=== PATIENT | female | born 1960 | race Caucasian/White ===

== ENCOUNTER 2020-03-31 06:03 | Outpatient (REF) | payer BC, SELFPAY ==
[2020-03-31 11:21] LABS: MANUAL DIFF FLAG NO
[2020-03-31 11:28] LABS: Basophils Percent Auto 0.6 % (0-2); Eosinophils Absolute Auto 0.2 X10*3/uL (0.0-0.4); Eosinophils Percent Auto 3.4 % (0-4); Hematocrit 38.8 % (37-47); Hemoglobin 12.9 g/dl (12.0-16.0); Imm Gran Abs Auto 0.02 X10*3/uL (0.00-0.03); Imm Gran Pct Auto 0.3 % (0.0-0.4); Lymphocytes Percent Auto 28.3 % (20-40); Mean Corpuscular HGB Conc 33.2 g/dl (31.0-35.0); Mean Corpuscular Hemoglobin 29.8 pg (27.0-33.0); Mean Corpuscular Volume 89.6 fL (80-98); Mean Platelet Volume 10.7 fL (9.4-12.3); Monocytes Absolute Auto 0.7 X10*3/uL (0.1-1.2); Monocytes Percent Auto 9.7 % (2-11); Neutrophils Absolute Auto 4.1 X10*3/uL (2.0-8.3); Neutrophils Percent Auto 57.7 % (45-73); Platelet Count 306 X10*3/uL (160-400); Red Blood Count 4.33 X10*6/uL (4.20-5.50); Red Cell Distribution Width 13.2 % (11.0-16.0); White Blood Count 7.1 X10*3/uL (4.8-10.8)
[2020-03-31 11:30] LABS: Estimated Average Glucose 100 mg/dL; Hemoglobin A1c % 5.1 %
[2020-03-31 11:55] LABS: Alanine Aminotransferase 19 U/L (0-31); Albumin Level 3.8 g/dL (3.5-5.0); Alkaline Phosphatase 68 U/L (39-117); Anion Gap 11 (12-20); Aspartate Amino Transferase 16 U/L (5-31); Bilirubin Total 0.5 mg/dL (0.0-1.0); Blood Urea Nitrogen 16 mg/dL (9-16); Calcium 8.4 mg/dL (8.4-10.2); Carbon Dioxide 28 mmol/L (22-29); Chloride 106 mmol/L (96-108); Cholesterol 220 mg/dL; Estimated Glomerular Filt Rate 60; Glucose Fasting 85 mg/dL (60-99); HDL Cholesterol 55 mg/dL; LDL Cholesterol Calculated 119 mg/dl; Potassium 3.7 mmol/l (3.3-5.1); Sodium 141 mmol/L (135-145); Total Protein 6.1 g/dL (6.5-8.0); Triglycerides 232 mg/dL
[2020-03-31 12:20] LABS: Thyroid Stimulating Hormone 1.14 mIU/mL (0.32-4.0); Vitamin D 25-OH Total 43.5 ng/mL (>30)
== END 2020-03-31 06:04 | disposition home or self-care (01) ==
LOC: HO.HMGCLDS 06:03
PROVIDERS: PCP Internal Medicine; Visit Provider Internal Medicine
DX: Z00.00 Encounter for general adult medical examination without abnormal findings (principal); E78.00 Pure hypercholesterolemia, unspecified; Z13.29 Encounter for screening for other suspected endocrine disorder; Z13.1 Encounter for screening for diabetes mellitus; Z78.9 Other specified health status
CPT/HCPCS: 36415; 80053; 80061; 82306; 83036; 84443; 85025

== ENCOUNTER 2020-12-11 07:01 | Day surgery (SDC) | payer BC, SELFPAY ==
[2020-12-06 10:44] VITALS: BMI 25.9
--- NOTE | 2020-12-07 11:59 | P.CONAN_ITS ---
Documented by User: Sanjana Dominguez 12/07/20 11:59 HPI - Anesthesia Eval Consult details Narrative: 60yo F for Colonoscopy PMFSH Past Medical History Medical History (Updated 12/06/20 @ 10:43 by Eli Ring) COVID-19 vaccine series completed PONV (postoperative nausea and vomiting) Seasonal allergies Surgical History Surgical History (Updated 12/06/20 @ 10:34 by Eli Ring) History of tonsillectomy Hx of cervical discectomy Hx of cholecystectomy Hx of colonoscopy Hx of hysterectomy S/P anal fissurectomy [place] teeth extracted Social History Social History Are you a primary health care law specialist to a significant other at home: No Do you presently have visiting nurse or other home services: No Patient Tobacco Use Status: Never used Tobacco Second Hand Smoke Exposure: No Use of substances other than those prescribed or required for medical reasons: No Have you been hit, kicked, punched, or otherwise hurt by someone within the past year? If so, by whom?: No Are you DNR?: No Advance Directives: No Advance Directives Information Provided: No Advance Directives on File: No Recently lost weight without trying: No Eating poorly because of decreased appetite: No Nutrition Risks: No Nutritional Risk Patient : No Meds Allergies Allergy/AdvReac Type Severity Reaction Status Date / Time No Known Allergies Allergy Verified 12/11/20 08:03 Home Medications Medication Instructions Recorded Confirmed Last Taken Type Lactobacillus acidophilus 1,000 mmu cells PO DAILY 12/06/20 12/06/20 Unknown History [Acidophilus] acetaminophen [Tylenol] 650 mg PO Q6H PRN 12/06/20 12/06/20 Unknown History ascorbic acid (vitamin C) [Vitamin 500 mg PO DAILY 12/06/20 12/06/20 Unknown History C] estradiol 1 tab PO DAILY 12/06/20 12/06/20 Unknown History estradiol VAGINAL 12/06/20 Unknown History pxxaydvm-qpg-gnxu-FA-lutein 1 tab PO DAILY 12/06/20 12/06/20 Unknown History [Centrum Silver Women] Exam Exam Date and Time: December 07, 2020 1159 Height,Weight and Vital Signs: Height 5 ft 2 in Weight 64.41 kg Assessment and Plan Assessment Anesthesia Assessment: Chart Reviewed Documented by User: Carrie Quan 12/11/20 08:40 [facility] Past Medical History Medical History (Updated 12/06/20 @ 10:43 by Eli Ring) COVID-19 vaccine series completed PONV (postoperative nausea and vomiting) Seasonal allergies Surgical History Surgical History (Updated 12/06/20 @ 10:34 by Eli Ring) History of tonsillectomy Hx of cervical discectomy Hx of cholecystectomy Hx of colonoscopy Hx of hysterectomy S/P anal fissurectomy [place] teeth extracted Social History Social History Are you a primary health care law specialist to a significant other at home: No Do you presently have visiting nurse or other home services: No Patient Tobacco Use Status: Never used Tobacco Second Hand Smoke Exposure: No Use of substances other than those prescribed or required for medical reasons: No Have you been hit, kicked, punched, or otherwise hurt by someone within the past year? If so, by whom?: No Are you DNR?: No Advance Directives: No Advance Directives Information Provided: No Advance Directives on File: No Recently lost weight without trying: No Eating poorly because of decreased appetite: No Nutrition Risks: No Nutritional Risk Patient : No Meds Allergies Allergy/AdvReac Type Severity Reaction Status Date / Time No Known Allergies Allergy Verified 12/11/20 08:03 Home Medications Medication Instructions Recorded Confirmed Last Taken Type Lactobacillus acidophilus 1,000 mmu cells PO DAILY 12/06/20 12/06/20 Unknown History [Acidophilus] acetaminophen [Tylenol] 650 mg PO Q6H PRN 12/06/20 12/06/20 Unknown History ascorbic acid (vitamin C) [Vitamin 500 mg PO DAILY 12/06/20 12/06/20 Unknown History C] estradiol 1 tab PO DAILY 12/06/20 12/06/20 Unknown History estradiol VAGINAL 12/06/20 Unknown History hvazgmir-kvv-rvig-FA-lutein 1 tab PO DAILY 12/06/20 12/06/20 Unknown History [Centrum Silver Women] Exam Airway Mallampati Class: II TM Dist: >3cm Neck ROM: Full Heart: rrr Lungs: cta Assessment and Plan Assessment Anesthesia Assessment: Anesthesia Plan Discussed and Chart Reviewed Final Anesthetic Review NPO: Yes ASA Class: II Final Preanesthetic Review: No Changes in Pt Med Stat and Consent Obtaine d/Reviewed Patient Risk: Intermediate Procedure Risk: Intermediate Anesthetic Plan Anesthetic Plan: MAC: Disposition: Standard PACU
[2020-12-11 08:05] VITALS: BP 152/86; PULSE 90; RESP 16; TEMP 36.3; O2SAT 99
[2020-12-11] MEDS: Lactated Ringers 1,000 ML 100 ML IVCONT (08:09)
[2020-12-11 09:28] VITALS: BP 101/60; PULSE 81; RESP 16; TEMP 36.3; O2SAT 96
--- NOTE | 2020-12-11 09:31 | P.BOP_ITS ---
Brief Operative Note Date of Service: 12/11/20 Pre-op diagnosis: Screening Post-op diagnosis: other (Diverticulosis, Internal hemorrhoids) Procedure: Colonoscopy to the cecum and TI Surgeon: Escobar Zarate Anesthesia: MAC Was an Certified Alcohol Drug Counselor used for this Procedure?: No Estimated blood loss (mL): 0 Pathology: none sent Condition: stable Disposition: PACU
[2020-12-11 09:43] VITALS: BP 103/59; PULSE 65; RESP 18; O2SAT 97
[2020-12-11 09:58] VITALS: BP 109/53; PULSE 68; RESP 18; O2SAT 97
[2020-12-11 10:13] VITALS: BP 117/62; PULSE 64; RESP 18; O2SAT 98
--- NOTE | 2020-12-15 10:56 | OP_ITS ---
SURGEON: Escobar Zarate MD INDICATIONS: The patient presents for evaluation of colorectal cancer screening. Full consent has been obtained from her for this, including risks of bleeding and perforation. PREOPERATIVE DIAGNOSIS: Colorectal cancer screening. POSTOPERATIVE DIAGNOSIS: PROCEDURE PERFORMED: Colonoscopy to cecum and terminal ileum. ESTIMATED BLOOD LOSS: COMPLICATIONS: ANESTHESIA: Monitored anesthesia care. ASSISTANTS: SPECIMENS: POSTOPERATIVE DIAGNOSES: Colorectal cancer screening, diverticulosis and internal hemorrhoids. DESCRIPTION OF PROCEDURE: The patient was placed in the left lateral decubitus position. The digital rectal exam revealed no abnormalities. The Olympus video pediatric colonoscope was entered into the rectum and advanced easily to the cecum. Once in the cecum, I did identify normal-appearing cecal pouch with appendiceal orifice and a normal-appearing ileocecal valve. The terminal ileum was cannulated and appeared normal. The scope was withdrawn back in the colon. The entire cecum and ileocecal valve appeared normal. The scope was slowly withdrawn assessing all mucosal surfaces carefully. Preparation was excellent. I did not visualize any sign of polyps, colitis, nor angiodysplasia. There was a mild to moderate amount of sigmoid diverticulosis. In the rectum, scope was retroflexed visualizing small internal hemorrhoids, but no other pathology. The rectal mucosa appeared normal. The scope was straightened out and withdrawn from the patient. She tolerated the procedure well and was returned to the recovery area in stable condition. IMPRESSION: 1. Diverticulosis. 2. Internal hemorrhoids. PLAN: Given today's negative exam and negative family history, I would recommend a followup colonoscopy in 10 years for further screening. She will otherwise see me on a p.r.n. basis. MD SHERIF Salas/ROBBIE / [id number]
== END 2020-12-11 11:59 | disposition home or self-care (01) ==
PROVIDERS: PCP Internal Medicine; Visit Provider Internal Medicine
PROC: 0DJD8ZZ Inspection of Lower Intestinal Tract, Via Natural or Artificial Opening Endoscopic (ICD-10-PCS; CPT 45378; principal; 2020-12-11 08:20)
DX: Z12.11 Encounter for screening for malignant neoplasm of colon (principal); K57.30 Diverticulosis of large intestine without perforation or abscess without bleeding; K64.8 Other hemorrhoids
CPT/HCPCS: 45378

== ENCOUNTER 2021-03-31 06:32 | Outpatient (REF) | payer BC, SELFPAY ==
[2021-03-31 11:09] LABS: MANUAL DIFF FLAG NO
[2021-03-31 11:15] LABS: Basophils Percent Auto 0.6 % (0-2); Eosinophils Absolute Auto 0.1 X10*3/uL (0.0-0.4); Eosinophils Percent Auto 1.9 % (0-4); Imm Gran Abs Auto 0.01 X10*3/uL (0.00-0.03); Imm Gran Pct Auto 0.1 % (0.0-0.4); Lymphocytes Absolute Auto 1.8 X10*3/uL (1.2-4.9); Mean Corpuscular HGB Conc 33.3 g/dl (31.0-35.0); Mean Corpuscular Hemoglobin 29.7 pg (27.0-33.0); Mean Corpuscular Volume 89.2 fL (80-98); Mean Platelet Volume 10.7 fL (9.4-12.3); Monocytes Absolute Auto 0.5 X10*3/uL (0.1-1.2); Monocytes Percent Auto 7.8 % (2-11); Neutrophils Absolute Auto 4.4 X10*3/uL (2.0-8.3); Neutrophils Percent Auto 63.6 % (45-73); Platelet Count 306 X10*3/uL (160-400); Red Blood Count 4.37 X10*6/uL (4.20-5.50); Red Cell Distribution Width 13.1 % (11.0-16.0); White Blood Count 6.9 X10*3/uL (4.8-10.8)
[2021-03-31 11:24] LABS: Appearance Urine CLEAR; Color Urine YELLOW; Glucose Urine UA NEG (NEG); Leukocyte Esterase Urine NEG (NEG); Nitrite Urine NEG (NEG); Urine Blood NEG (NEG); Urine Ketones NEG (NEG); Urine Protein NEG (NEG-TRACE)
[2021-03-31 11:24] LABS: Estimated Average Glucose 97 mg/dL
[2021-03-31 11:34] LABS: Alanine Aminotransferase 14 U/L (0-31); Albumin Level 4.1 g/dL (3.5-5.0); Alkaline Phosphatase 73 U/L (39-117); Anion Gap 12 (12-20); Aspartate Amino Transferase 17 U/L (5-31); Bilirubin Total 0.6 mg/dL (0.0-1.0); Blood Urea Nitrogen 14 mg/dL (9-16); Calcium 9.2 mg/dL (8.4-10.2); Carbon Dioxide 24 mmol/L (22-29); Chloride 106 mmol/L (96-108); Cholesterol 262 mg/dL; Estimated Glomerular Filt Rate > 60; Glucose Fasting 90 mg/dL (60-99); HDL Cholesterol 58 mg/dL; LDL Cholesterol Calculated 161 mg/dl; Potassium 3.8 mmol/L (3.3-5.1); Sodium 138 mmol/L (135-145); Total Protein 6.7 g/dL (6.5-8.0); Triglycerides 216 mg/dL
[2021-03-31 11:46] LABS: Thyroid Stimulating Hormone 1.53 uIU/mL (0.32-4.0); Vitamin D 25-OH Total 63.8 ng/mL (>30)
== END 2021-03-31 06:33 | disposition home or self-care (01) ==
LOC: HO.HMGCLDS 06:32
PROVIDERS: PCP Internal Medicine; Visit Provider Internal Medicine
DX: Z00.00 Encounter for general adult medical examination without abnormal findings (principal); E78.00 Pure hypercholesterolemia, unspecified
CPT/HCPCS: 36415; 80053; 80061; 81003; 82306; 83036; 84443; 85025

== ENCOUNTER 2021-07-21 06:31 | Outpatient (REF) | payer BC, SELFPAY ==
[2021-07-21 11:44] LABS: Cholesterol 190 mg/dL; HDL Cholesterol 49 mg/dL; LDL Cholesterol Calculated 96 mg/dl; Triglycerides 229 mg/dL
== END 2021-07-21 06:32 | disposition home or self-care (01) ==
LOC: HO.HMGCLDS 06:31
PROVIDERS: PCP Internal Medicine; Visit Provider Internal Medicine
DX: E78.00 Pure hypercholesterolemia, unspecified (principal)
CPT/HCPCS: 36415; 80061

== ENCOUNTER 2022-04-27 06:31 | Outpatient (REF) | payer BC, SELFPAY ==
[2022-04-27 11:40] LABS: MANUAL DIFF FLAG NO
[2022-04-27 11:50] LABS: Basophils Percent Auto 0.6 % (0-2); Eosinophils Absolute Auto 0.1 X10*3/uL (0.0-0.4); Eosinophils Percent Auto 1.8 % (0-4); Hematocrit 39.8 % (37.0-47.0); Hemoglobin 13.1 g/dl (12.0-16.0); Imm Gran Abs Auto 0.01 X10*3/uL (0.00-0.03); Imm Gran Pct Auto 0.2 % (0.0-0.4); Lymphocytes Absolute Auto 1.9 X10*3/uL (1.2-4.9); Lymphocytes Percent Auto 28.2 % (20-40); Mean Corpuscular HGB Conc 32.9 g/dl (31.0-35.0); Mean Corpuscular Hemoglobin 29.4 pg (27.0-33.0); Mean Corpuscular Volume 89.4 fL (80.0-98.0); Mean Platelet Volume 10.8 fL (9.4-12.3); Monocytes Absolute Auto 0.5 X10*3/uL (0.1-1.2); Monocytes Percent Auto 7.9 % (2-11); Neutrophils Percent Auto 61.3 % (45-73); Platelet Count 258 X10*3/uL (160-400); Red Blood Count 4.45 X10*6/uL (4.20-5.50); Red Cell Distribution Width 13.3 % (11.0-16.0); White Blood Count 6.6 X10*3/uL (4.8-10.8)
[2022-04-27 12:25] LABS: Anion Gap 18 (12-20); Blood Urea Nitrogen 15 mg/dL (9-16); Calcium 8.7 mg/dL (8.4-10.2); Carbon Dioxide 21 mmol/L (22-29); Chloride 105 mmol/L (96-108); Cholesterol 178 mg/dL; Estimated Glomerular Filt Rate > 60; Glucose Fasting 90 mg/dL (60-99); HDL Cholesterol 56 mg/dL; LDL Cholesterol Calculated 88 mg/dl; Potassium 3.9 mmol/L (3.3-5.1); Sodium 140 mmol/L (135-145); Triglycerides 170 mg/dL
[2022-04-27 12:46] LABS: Thyroid Stimulating Hormone 1.36 uIU/mL (0.32-4.0); Vitamin D 25-OH Total 43.5 ng/mL (>30)
== END 2022-04-27 06:32 | disposition home or self-care (01) ==
LOC: HO.HMGCLDS 06:31
PROVIDERS: PCP Internal Medicine; Visit Provider Internal Medicine
DX: Z00.00 Encounter for general adult medical examination without abnormal findings (principal); E78.00 Pure hypercholesterolemia, unspecified
CPT/HCPCS: 36415; 80048; 80061; 82306; 84443; 85025

== ENCOUNTER 2023-04-19 06:51 | Outpatient (REF) | payer BC, SELFPAY ==
[2023-04-19 11:03] LABS: MANUAL DIFF FLAG NO
[2023-04-19 11:22] LABS: Basophils Percent Auto 0.6 % (0-2); Eosinophils Absolute Auto 0.1 X10*3/uL (0.0-0.4); Eosinophils Percent Auto 1.9 % (0-4); Hematocrit 38.7 % (37.0-47.0); Hemoglobin 13.1 g/dl (12.0-16.0); Imm Gran Abs Auto 0.02 X10*3/uL (0.00-0.03); Imm Gran Pct Auto 0.3 % (0.0-0.4); Lymphocytes Absolute Auto 1.8 X10*3/uL (1.2-4.9); Lymphocytes Percent Auto 28.3 % (20-40); Mean Corpuscular HGB Conc 33.9 g/dl (31.0-35.0); Mean Corpuscular Hemoglobin 29.8 pg (27.0-33.0); Mean Corpuscular Volume 88.2 fL (80.0-98.0); Mean Platelet Volume 10.6 fL (9.4-12.3); Monocytes Absolute Auto 0.5 X10*3/uL (0.1-1.2); Monocytes Percent Auto 7.9 % (2-11); Neutrophils Absolute Auto 3.8 x10*3/uL (2.0-8.3); Platelet Count 316 X10*3/uL (160-400); Red Blood Count 4.39 X10*6/uL (4.20-5.50); Red Cell Distribution Width 13.6 % (11.0-16.0); White Blood Count 6.2 X10*3/uL (4.8-10.8)
[2023-04-19 11:39] LABS: Alanine Aminotransferase 14 U/L (0-31); Albumin Level 3.9 g/dL (3.5-5.0); Alkaline Phosphatase 58 U/L (39-117); Anion Gap 14 (12-20); Aspartate Amino Transferase 20 U/L (5-31); Bilirubin Total 0.6 mg/dL (0.0-1.0); Blood Urea Nitrogen 12 mg/dL (9-16); Carbon Dioxide 24 mmol/L (22-29); Chloride 106 mmol/L (96-108); Cholesterol 168 mg/dL (<200); Estimated Glomerular Filt Rate > 60; Glucose Fasting 85 mg/dL (60-99); HDL Cholesterol 58 mg/dL (>40); LDL Cholesterol Calculated 81 mg/dL (<100); Potassium 3.4 mmol/L (3.3-5.1); Sodium 141 mmol/L (135-145); Total Protein 6.4 g/dL (6.5-8.0); Triglycerides 145 mg/dL (<150)
[2023-04-19 11:42] LABS: Vitamin D 25-OH Total 86.6 ng/mL (>30)
== END 2023-04-19 06:52 | disposition home or self-care (01) ==
LOC: HO.HMGCLDS 06:51
PROVIDERS: PCP Internal Medicine; Visit Provider Internal Medicine
DX: Z00.00 Encounter for general adult medical examination without abnormal findings (principal); E78.00 Pure hypercholesterolemia, unspecified; E55.9 Vitamin D deficiency, unspecified
CPT/HCPCS: 36415; 80053; 80061; 82306; 84443; 85025

== ENCOUNTER 2024-05-29 06:36 | Outpatient (REF) | payer BC, SELFPAY ==
[2024-05-29 11:13] LABS: MANUAL DIFF FLAG NO
[2024-05-29 11:22] LABS: Basophils Percent Auto 0.7 % (0-2); Eosinophils Absolute Auto 0.2 X10*3/uL (0.0-0.4); Eosinophils Percent Auto 2.5 % (0-4); Hematocrit 39.5 % (37.0-47.0); Hemoglobin 13.2 g/dl (12.0-16.0); Imm Gran Abs Auto 0.01 X10*3/uL (0.00-0.03); Imm Gran Pct Auto 0.2 % (0.0-0.4); Lymphocytes Absolute Auto 1.9 X10*3/uL (1.2-4.9); Lymphocytes Percent Auto 31.9 % (20-40); Mean Corpuscular HGB Conc 33.4 g/dl (31.0-35.0); Mean Corpuscular Hemoglobin 30.1 pg (27.0-33.0); Mean Platelet Volume 10.1 fL (9.4-12.3); Monocytes Absolute Auto 0.6 X10*3/uL (0.1-1.2); Monocytes Percent Auto 9.2 % (2-11); Neutrophils Absolute Auto 3.3 x10*3/uL (2.0-8.3); Neutrophils Percent Auto 55.5 % (45-73); Platelet Count 295 X10*3/uL (160-400); Red Blood Count 4.39 X10*6/uL (4.20-5.50); Red Cell Distribution Width 13.7 % (11.0-16.0)
[2024-05-29 11:35] LABS: Alanine Aminotransferase 13 U/L (0-31); Albumin Level 3.9 g/dL (3.5-5.0); Alkaline Phosphatase 67 U/L (39-117); Anion Gap 12 (12-20); Aspartate Amino Transferase 25 U/L (5-31); Bilirubin Total 0.5 mg/dL (0.0-1.0); Blood Urea Nitrogen 13 mg/dL (9-16); Calcium 8.3 mg/dL (8.4-10.2); Carbon Dioxide 26 mmol/L (22-29); Chloride 106 mmol/L (96-108); Cholesterol 187 mg/dL (<200); Estimated Glomerular Filt Rate 55; Glucose Fasting 92 mg/dL (60-99); HDL Cholesterol 65 mg/dL (>40); LDL Cholesterol Calculated 93 mg/dL (<100); Potassium 3.6 mmol/L (3.3-5.1); Sodium 140 mmol/L (135-145); Total Protein 6.5 g/dL (6.5-8.0); Triglycerides 147 mg/dL (<150)
[2024-05-29 11:53] LABS: Thyroid Stimulating Hormone 1.38 uIU/mL (0.32-4.0); Vitamin D 25-OH Total 118.1 ng/mL (>30)
== END 2024-05-29 06:37 | disposition home or self-care (01) ==
LOC: HO.HMGCLDS 06:36
PROVIDERS: PCP Internal Medicine; Visit Provider Internal Medicine
DX: Z00.00 Encounter for general adult medical examination without abnormal findings (principal); E78.00 Pure hypercholesterolemia, unspecified; F41.9 Anxiety disorder, unspecified
CPT/HCPCS: 36415; 80053; 80061; 82306; 84443; 85025

== ENCOUNTER 2025-02-18 09:50 | Outpatient (AMB) | payer BC, SELFPAY ==
[2025-02-18 09:58] VITALS: BP 150/78; PULSE 106; TEMP 36.7; O2SAT 96; BMI 27.1
--- NOTE | 2025-02-18 09:58 | MHC.OFFWIV ---
Intake Vital Signs 02/18/25 09:58 Height 5 ft 2 in Weight 148 lb BMI 27.1 BP 150/78 H Blood Pressure Location Rt brachial Position Sitting Pulse 106 H Pulse Source Pulse Oximeter Temp 98.1 F Temp Source Oral Pulse Oximetry (%) 96 Oxygen Delivery Method Room Air Intake Visit Reasons: EP Pain LRQ Intake Note: pt presents with right lower inguinal pain for a few days Patient Tobacco Use Status: Never used Tobacco Allergies No Known Allergies Allergy (Verified 02/18/25 10:05) Do you need a note to return to daycare/school/sports/work: No HPI EP Pain LRQ HPI Details This is a 64-year-old female patient who presents to the walk-in clinic today with right inguinal discomfort for the last several days. She states that earlier this week, she was doing some yard work/gardening and lifting heavy equipment including a wheelbarrow. She later developed some tightness/tenderness in her right lower inguinal area. Denies any urinary symptoms. Denies any constipation/diarrhea. No nausea or vomiting. No fevers or chills. Denies any flank pain PFSH Medical History COVID-19 vaccine series completed PONV (postoperative nausea and vomiting) Seasonal allergies Surgical History S/P anal fissurectomy [place] teeth extracted Hx of cervical discectomy History of tonsillectomy Hx of cholecystectomy Hx of hysterectomy Hx of colonoscopy Social History Are you a primary career development associate to a significant other at home: No Do you presently have visiting nurse or other home services: No Patient Tobacco Use Status: Never used Tobacco Second Hand Smoke Exposure: No Review of Systems Const All systems reviewed & are unremarkable except as noted in HPI and below Physical Exam Vital Signs: Last Vital Signs Pulse 106 H 02/18/25 09:58 Pulse Ox 96 02/18/25 09:58 Oxygen Delivery Method Room Air 02/18/25 09:58 BMI result Body Mass Index 27.1 Const General: cooperative, healthy appearing, comfortable and no acute distress HEENT Head: Yes normal to inspection Resp Effort & Inspection: normal respiratory effort Auscultation: clear to auscultation bilaterally Cardio Rate: regular rate Rhythm: regular rhythm GI Other: mild tenderness to palp right inguinal area. No bulges/hernia palpated Inspection: Yes normal to inspection Palpation (GI): Soft to palpation (nontender, neg McBurneys, no rebound tenderness) and No hepatosplenomegaly present Percussion: Yes normal to percussion Auscultation: normal bowel sounds General: Yes bladder normal to palpation and Yes no CVA tenderness Bimanual exam- vagina & uterus: bladder normal to palpation Back/Spine/Pelvis Back: no CVA tenderness Skin General skin exam: no rashes or lesions noted Extrem General: Yes capillary refill normal and Yes no clubbing, cyanosis or edema Psych Appearance: grossly normal Mental Status: mental status grossly normal Speech and movement: Normal speech and movement present Assessment & Plan Assessment & Plan (1) Right groin pain: Code(s): R10.31 - Right lower quadrant pain Plan: I cannot palpate a hernia at this time. Negative appendicitis/acute abdomen symptoms. Urine dip was negative aside from small blood, which patient states is her baseline/norm. This could be an inguinal strain as patient started feeling it following some strenuous gardening. We discussed conservative measures at this time, including rest, NSAIDs, and I will start her on a short course of muscle relaxers for bedtime. We discussed indications, use, possible side effects of this medication. She can try some gentle stretching of area when she feels ready to do so. We discussed that should symptoms worsen, or should she develop any symptoms including severe right lower quadrant pain, fever, chills, nausea/vomiting, she should go to the emergency department for evaluation. If more mild symptoms persist, she can follow up with us or with her PCP for further eval. All questions were answered and patient verbalizes understanding and agrees to plan. Medications: New cyclobenzaprine 5 mg PO BEDTIME PRN 7 tabs 0RF muscle spasm R10.31 - Right lower quadrant pain Coding Level of Care Code Est Pt Level 4 (34596) Diagnoses Right groin pain R10.31
== END 2025-02-18 10:52 | disposition home or self-care (01) ==
PROVIDERS: PCP Internal Medicine; Visit Provider Nurse Practitioner Family
DX: Z13.9 Encounter for screening, unspecified (principal); R10.31 Right lower quadrant pain

== ENCOUNTER → 2025-02-18 09:50 | Outpatient (BNVA) | payer BC, SELFPAY | PROVIDERS: PCP Internal Medicine | DX: R10.31 Right lower quadrant pain (principal) | CPT/HCPCS: 81003 ==

== ENCOUNTER 2025-03-03 14:14 | Outpatient (AMB) | payer BC, SELFPAY ==
--- NOTE | 2025-03-03 14:34 | MHC.PC.OV ---
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 Accompanied by: Self / Same As Patient Allergies No Known Allergies Allergy (Verified 03/03/25 16:58) Medication List - Last Reconciled 03/03/25 by Cathy Leblanc PA-C acetaminophen (Tylenol) 650 mg PO Q6H PRN atorvastatin 10 mg PO DAILY escitalopram oxalate 10 mg PO DAILY estradiol 1 tab PO DAILY estradiol 0.01%(0.1mg/gram) vaginal zavbvrli-ern-zrxv-FA-vit K-lut 8 mg iron-400 mcg-50 mcg (Centrum Silver Women) 1 tab PO DAILY sumatriptan succinate sumatriptan succinate 50 mg tablet - take 1 tab at onset of headache; if no relief may repeat 1 tab after at least 2 hrs; max = 4 tabs/24 hr PO Tobacco use date assessed: 03/03/25 Fall risk assessment: No Falls in past year Last assessed Fall Risk: 03/03/25 Dental Screening Dental Screen Date: 03/03/25 Did you have a dental visit in the last 12 months?: Yes Did you have a dental problem in the last 6 months where you did not have access to dental care?: No Was dental information given to patient?: Patient has dentist HPI Follow up/ walk-in clinic 02/18 HPI Details The patient is a 65-year-old female presenting with musculoskeletal pain in the right inner groin area. The pain was initially severe, with swelling and tenderness, but has since improved with the use of muscle relaxants, Tylenol, ibuprofen, and heat application. The patient reports that the pain is now only noticeable when coughing and is not as severe as it was two weeks ago. The patient has a history of skin cancer, which is monitored annually. There is no history of blood clots or other cancers. The patient also experiences anxiety, for which she is taking escitalopram, and reports significant improvement in symptoms. She has recently resumed exercising, including a 5-mile walk, which may have contributed to the musculoskeletal pain. Social History - Exercise: Recently resumed, including a 5-mile walk [facility] Medical History (Updated 03/03/25 @ 17:02 by Cathy Leblanc PA-C) Anxiety Right groin pain COVID-19 vaccine series completed PONV (postoperative nausea and vomiting) Seasonal allergies Surgical History S/P anal fissurectomy [place] teeth extracted Hx of cervical discectomy History of tonsillectomy Hx of cholecystectomy Hx of hysterectomy Hx of colonoscopy Family History Mother AD (Alzheimer's disease) Father Prostate cancer Brother Diabetes Brother Colon cancer Social History [facility]: [facility] Are you a primary career professional to a significant other at home: No Do you presently have visiting nurse or other home services: No Alcohol intake: current Alcohol intake frequency: does not drink Patient Tobacco Use Status: Never used Tobacco Second Hand Smoke Exposure: No service: No Current occupational status: employed Cognitive needs: No Hearing needs: No Vision needs: Yes (rx glasses/contacts) Questionnaire PHQ-9 Over the last 2 weeks, how often have you been bothered by any of the following problems? 1. Little interest or pleasure in doing things: not at all 2. Feeling down, depressed, or hopeless: not at all 3. Trouble falling or staying asleep, or sleeping too much: not at all 4. Feeling tired or having little energy: not at all 5. Poor appetite or overeating: not at all 6. Feeling bad about yourself - or that you are a failure or have let yourself or your family down: not at all 7. Trouble concentrating on things, such as reading the newspaper or watching television: not at all 8. Moving or speaking so slowly that other people could have noticed. Or the opposite - being so fidgety or restless that you have been moving around a lot more than usual: not at all 9. Thoughts that you would be better off or of hurting yourself in some way: not at all Total score: 0 Depression Screening Interpretation: Negative Depression Screening Done: Yes 93150 - PHQ-9 Billing: Yes Source: Developed by Drs. Escobar Johnson, Tommy Gordon and colleagues, with an educational ger from [employer]. Thrive Questionnaire Date Thrive assessed: 03/03/25 I am a: Patient What is your living situation today?: I have a steady place to live Within the past 12 months, did the food you bought not last and you didn't have the money to get more?: Never true Within the past 12 months, did you worry whether your food would run out before you got money to buy more?: Never true Do you have trouble paying for medicines?: No Do you have trouble getting transportation to medical appointments?: No Do you have trouble paying your heating and electricity bill?: No Do you have trouble taking care of your child, family member or friend?: No Do you have trouble with day-to-day activities such as bathing, preparing meals, shopping, managing finances, etc.?: No Are you currently unemployed and looking for a job?: No Are you interested in more education?: No Please select the resources that you would like help with: None THRIVE Score: 0 AUDIT C Alcohol Use Questionnaire (AUDIT-C) 1. How often do you have a drink containing alcohol?: Never 3. How often do you have six or more drinks on one occasion?: Never Total Score: 0 Score Reviewed/Action Taken: No MEET-7 AMB Questionnaire MEET-7 Date MEET - 7 assessed: 03/03/25 Feeling nervous, anxious, or on edge: 0 = Not at all (patient currently on anxiety medication. ) Not being able to stop or control worryin = Several days Worrying too much about different things: 1 = Several days Trouble relaxin = Not at all Being so restless that it is hard to sit still: 0 = Not at all Becoming easily annoyed or irritable: 0 = Not at all Feeling afraid as if something awful might happen: 0 = Not at all Total MEET-7 score (0-4 normal; 5-9 mild; 10-14 moderate; 15-21 severe): 2 Source: Developed by Drs. Escobar Johnson, Mela Grajeda, Tommy Elias and colleagues, with an educational ger from [employer]. MEET-7 Assessment Billing MEET-7 Assessment Tool: MEET-7 Assessment 87157 Review of Systems Const Details: - Gastrointestinal: Denies diarrhea, constipation, black or bloody stools, nausea, vomiting - Musculoskeletal: Reports pain in the abdominal area, noticeable when coughing - Cardiovascular: Denies leg swelling, no history of blood clots All systems reviewed & are unremarkable except as noted in HPI and below Physical exam (Primary Care) Vital Signs: Last Vital Signs Temp 98.5 F 03/03/25 14:47 Pulse 82 03/03/25 14:47 Resp 14 03/03/25 14:47 BP 132/82 03/03/25 14:47 Pulse Ox 97 03/03/25 14:47 Oxygen Delivery Method Room Air 03/03/25 14:47 Care Plan Goal for BP management: <140/90 at Goal BMI result Body Mass Index 27.2 BMI Assessment/Plan discussion: High BMI High, discussed plan: lifestyle, weight reduction, dietary, physical activity, alcohol moderation and other Tobacco/Smoking Status: Tobacco use Status Tobacco use date assessed 03/03/25 03/03/25 14:42 Patient Tobacco Use Status Never used Tobacco 03/03/25 14:59 PHQ-9: PHQ-9 Score PHQ-9: Total score 0 03/03/25 15:02 Depression Screening Interpretation: Negative Thrive Assessment: Date of Thrive Assessment Date Thrive assessed 03/03/25 03/03/25 15:02 Const Other: Appearance: Alert. Oriented X3. No acute distress. Head: Normal external exam. Normocephalic. Atraumatic. Eyes: Pupils are equal, round, and reactive to light. Extraocular movements intact. Conjunctiva and sclera normal. Eyelids normal. Throat: Pharynx normal. Uvula midline. Moist mucous membranes. Neck: Normal inspection. Neck supple. Full range of motion. Cardiovascular: Normal heart rate and rhythm. Respiratory: No respiratory distress. Painless inspiration. Back: Full range of motion noted. Skin: Skin warm and dry. Normal skin color. Normal skin turgor. No rashes/lesions/lacerations noted. Extremities: Patient with mild tenderness to the right inner groin. No obvious swelling, infections, rashes, lesions noted at this time. Otherwise all other extremities exhibit normal range of motion nontender. Neuro: Oriented X 3. No motor deficit. No sensory deficit. Reflexes normal. Coding Level of Care Code Est Pt Level 4 (98581) Complex EM visit Add On G2211 Diagnoses Right groin pain R10.31 Anxiety F41.9 Additional Codes PHQ-9 - 53948 - PHQ-9 Billing: Yes ([id number]) MEET-7 Assessment Billing - MEET-7 Assessment Tool: MEET-7 Assessment 93323 ([id number]) Assessment & Plan Assessment & Plan (1) Right groin pain: Code(s): R10.31 - Right lower quadrant pain Category: Medical Plan: An ultrasound was recommended to rule out a hernia or other underlying issues, given the location and nature of the pain. The patient was advised to continue using heat application and xbbm-dto-wmhwzwo analgesics such as ibuprofen or naproxen for pain management. If the pain persists, the patient should proceed with the ultrasound, but if it resolves, the ultrasound can be canceled. (2) Anxiety: Code(s): F41.9 - Anxiety disorder, unspecified Category: Medical Plan: The patient is currently on escitalopram, which has been effective in managing her anxiety symptoms. No changes to the current medication regimen were discussed, and the patient is advised to continue with the current prescription. Plan Plan Patient was informed and verbally consented to the use of an ambient scribe for clinic note documentation during this visit. 1. Musculoskeletal Pain An ultrasound was recommended to rule out a hernia or other underlying issues, given the location and nature of the pain. The patient was advised to continue using heat application and losa-rhu-xofxrwj analgesics such as ibuprofen or naproxen for pain management. If the pain persists, the patient should proceed with the ultrasound, but if it resolves, the ultrasound can be canceled. 2. Anxiety The patient is currently on escitalopram, which has been effective in managing her anxiety symptoms. No changes to the current medication regimen were discussed, and the patient is advised to continue with the current prescription. I discussed with the patient the possibility of conducting an ultrasound to rule out a hernia, given the nature of her musculoskeletal pain. We also reviewed her current medication regimen for anxiety, confirming that escitalopram is effective and should be continued. Orders: Orders C Reactive Protein Today Z00.00 - Encounter for general adult medical examination without abnormal findings Complete Blood Count Auto Diff Today Z00.00 - Encounter for general adult medical examination without abnormal findings Liver Panel Today Z00.00 - Encounter for general adult medical examination without abnormal findings Vitamin B12 and Folate Today Z00.00 - Encounter for general adult medical examination without abnormal findings Vitamin D 25-OH Total Today Z00.00 - Encounter for general adult medical examination without abnormal findings Comprehensive [place]. Panel Fast Today Z00.00 - Encounter for general adult medical examination without abnormal findings Lipid Panel Today Z00.00 - Encounter for general adult medical examination without abnormal findings Hemoglobin A1c Today Z00.00 - Encounter for general adult medical examination without abnormal findings Magnesium Today Z00.00 - Encounter for general adult medical examination without abnormal findings TSH reflex Free T4 Today Z00.00 - Encounter for general adult medical examination without abnormal findings US Extremity Nonvas Limited RT Today R10.31 - Right lower quadrant pain Medications: Refilled escitalopram oxalate 10 mg PO DAILY 90 tabs 3RF Patient Instructions: - Continue using heat application and jicq-tlx-fugwehl pain relief as needed. - Proceed with the ultrasound if pain persists; cancel if resolved. - Continue taking escitalopram as prescribed.
[2025-03-03 14:47] VITALS: BP 132/82; PULSE 82; RESP 14; TEMP 36.9; O2SAT 97; BMI 27.2
== END 2025-03-03 15:20 | disposition home or self-care (01) ==
LOC: HO.HMCSH 14:14
PROVIDERS: PCP Internal Medicine; Visit Provider Physician Assistant Medical
DX: R10.31 Right lower quadrant pain (principal); F41.9 Anxiety disorder, unspecified

== ENCOUNTER → 2025-03-03 14:14 | Outpatient (BNVA) | payer BC, SELFPAY | PROVIDERS: PCP Internal Medicine; Visit Provider Physician Assistant Medical | DX: R10.31 Right lower quadrant pain (principal); F41.9 Anxiety disorder, unspecified; M79.10 Myalgia, unspecified site | CPT/HCPCS: 96127 ==

== ENCOUNTER 2025-06-04 06:44 | Outpatient (REF) | payer BC, SELFPAY ==
--- OUTSIDE RECORDS SUMMARY | 2025-06-04 06:47 | XMS_ITS | Continuity of Care Document ---
Author Organization [place] - [facility],, VEE HUERTAS MD Address [address] [address] Care Team Providers Care Gasateria Attendant Name Role Phone SUJATANAYELI Primary Care Provider Assessment No assessment recorded. Plan of Treatment Reminders Order Date Submit Date Provider Last Modified By Organization Details Last Modified Time Details Appointments None recorded. Lab cytology report, thin prep, smear or scraping, cervical or vaginal 2024 ELSA [facility] (Centralized Electronic Ordering - All Locations), Patient Can Go To The Location Of Their Choice, [id number] 18:15:54 hemoglobin , gastrointe stinal, stool 2024 025 [email or web address] 1 In-Office Order, Internal Use Only DO Not Attach Compendium DO Not Attach Compendium, Do Not Delete/merge, [id number] 08:20:16 Referral None recorded. Procedures None recorded. Surgeries None recorded. Imaging MAMMO, screening, digital, bilateral - Breast Aspiration and/or Biopsy if needed 2024 felipe [facility], [address], [address], [place], [address], 14:22:48 Medication Orders estradiol 1 mg tablet 2024 025 [facility], [facility], [place], [address], 08:20:18 Patient TargetsNo targets recorded. Patient Instructions Encounter Date Encounter Id Patient Instructions Last Modified By Organization Details Last Modified Time 04/11/2025 [id number] learning about healthy weight renu Not available 04/11/2025 08:20:16 She is here for annual exam, doing well on her HRT, elects to continue. She does not want a refill on the estradiol cream yet as she has too much already. Past history of vaginal dysplasia. S/p hysterectomy. She forgot to ask her brother if he had hereditary cancer testing, sh is advised once she is on Medicare it will not be covered, she understands. Note from 2023: She is here for annual, doing well on vaginal and oral ERT, elects to continue. 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 Two of her brother from pulmonary fibrosis, but they played in asbestos at her father's work. Another brother had colon cancer recently, she will ask him if he had Colaris testing. She appears to be doing well. We discussed having her continue to take hormone replacement therapy. We discussed the need to take a progestin if a uterus is present, and the rationale behind that. We discussed the stated risks of one in 10,000 of development of a blood clot/DVT/PE that could be life threatening. We discussed the Women's Health Initiative study and the findings. We discused the PEPPI study as well. She is aware that there are conflicting reports in the medical literature concerning the risks and benefits of HRT. We disussed that women are advised by ACOG to take HRT in the lowest dose necessary, and for the shortest time necessary, to control their symptoms. After a long discussion of the potential risks and benefits of HRT she elects to continue HRT. All questions were answered. Rx for HRT is called in to the pharmacy. caroline sears Not available 04/11/2025 08:21:00 Reason for Referral None Reported. Results Created Date Observation Date Name Description Value Unit Range Abnormal Flag Note LastModifiedBy Organization Detail LastModifiedTime 04/11/20 25 04/13/2025 IGP, RFX APTIM A HPV ASCU diagnosis: Commen t NEGAT KARLA FOR INTRA EPITH ELIAL LESIO N OR MALIG PRECIOUS . Not Available [facility] ([facility]) [address] [place], [address], 04/13/2025 18:15:54 04/11/2004/13/2025 IGP, RFX APTIM A HPV ASCU specimen adequacy: Juan Jose durbin Satis facto ry for evalu ation . Not Available [facility] ([facility]) [address] [place], [address], 04/13/2025 18:15:54 04/11/2004/13/2025 IGP, RFX APTIM A HPV ASCU clinician provided ICD10: Juan Jose durbin Z01.4 19 Not Available [facility] ([facility]) [address] [place], [address], 04/13/2025 18:15:54 04/11/2004/13/2025 IGP, RFX APTIM A HPV ASCU performed by: Juan Jose Urrutia , Cytol ogist (ASCP ) Not Available [facility] ([facility]) [address] [place], [address], 04/13/2025 18:15:54 04/11/2004/13/2025 IGP, RFX APTIM A HPV ASCU . . Not Available [facility] ([facility]) [address] [place], [address], 04/13/2025 18:15:54 04/11/2004/13/2025 IGP, RFX APTIM A HPV ASCU note: Juan Jose durbin The Pap smear is a scree thomas test desig brandy to aid in the detec tion of jose m ligna nt and malig nant condi tions of the uteri ne cervi x. It is not a diagn ostic proce dure and shoul d not be used as the sole means of detec ting cervi keith cance r. Both false -posi tive and false -nega tive repor ts do occur . Not Available [facility] ([facility]) [address] [facility], [place], [address], 04/13/2025 18:15:54 04/11/2004/13/2025 IGP, RFX APTIM A HPV ASCU test methodology: Commen t This liqui d based ThinP rep(R ) pap test was scree brandy with the use of an image guide sydene reyes. Not Available [facility] ([facility]) [address] [facility], [place], [address], 04/13/2025 18:15:54 04/11/2004/13/2025 IGP, RFX APTIM A HPV ASCU . Commen t The HPV DNA refle x crite fanny were not met with this speci men resul t there fore, no HPV testi ng was perfo rmed. Not Available [facility] ([facility]) [address] [facility], [place], [address], 04/13/2025 18:15:54 04/11/2004/11/2025 hemog lobin , gastr ointe james l, stool Occult Blood negati ve Not Available In-Office Order Internal Use Only DO Not Attach Compendium DO Not Attach Compendium, Do Not Delete/merge, [id number] 04/11/2025 08:06:10 Result Notes None recorded. Problems Name Problem SNOMED Code Status Onset Date Resolution Date Notes Provider Name and Address Organization Details Recorded Time Menopause present 439081170 Active Vee Huertas MD [address], [place], [phone], [place] [facility], 6 16:13:38 Endometri osis Active history of, had hysterect julio cesar due to this Vee Huertas MD [address], [place], [address], [place] [facility], 6 16:13:38 Breast lump 76219023 Active Vee Huertas MD [address], [place], [address], [place] - [facility], 6 16:13:38 Cytologic finding 519585458 Active Vee Huertas MD [address], [place], [address], [place] - [facility], 6 16:17:41 Acute lower urinary tract infection 382758688 Active Vee Huertas MD [address], [place], [address], [place] [facility], 6 16:13:38 Abnormal vaginal Papanicol aou smear 207474999 Active Vee Huertas MD [address], [place], [address], [place] [facility], 6 16:13:38 History of vaginal intraepit helial neoplasia 427837188496 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 She does not tolerate biopsy well, I didn't slept last night worried about getting a biopsy. She appears to have stable low grade dysplasia . She is under a massive amount of stress. Life issues discussed . There is no evidence of rapid progressi on. She is advised to do what she can to minimize stress and carve out time for herself to be mindful and take care of herself. This can resolve spontaneo usly if her immune system improves. Vee Huertas MD [address], [place], [address], [place] [facility], 9 16:12:10 Atrophic vaginitis 80055279 Active 2021 Vee Huertas MD [address], [place], [address], [place] [facility], 2 15:39:27 Problem Notes None recorded. Procedures Surgical History Date Name Laterality Status Provider Name and Address Organization Details Recorded Time 01/23/20 25 Most Recent Mammogram completed Marlene Gaines [place] - [facility], 03/28/2025 11:08:07 02/17/20 20 Colposcopy completed Vee Huertas MD [address], [place], [phone], [place] [facility], 02/17/2020 16:03:15 04/02/20 18 Colposcopy completed Vee Huertas MD [address], [place], [address], [place] [facility], 04/02/2018 16:28:23 11/19/19 17 Colposcopy completed Vee Huertas MD [address], [place], [address], [place] [facility], 11/18/2016 15:43:09 08/19/19 17 Colposcopy completed Vee Huertas MD [address], [place], [address], [place] [facility], 08/20/2016 09:46:04 08/17/19 16 Colposcopy completed Vee Huertas MD [address], [place], [address], [place] [facility], 08/17/2015 16:18:43 02/18/20 15 Colposcopy completed Vee Huertas MD [address], [place], [address], [place] [facility], 02/17/2015 14:30:28 06/30/19 15 Other completed Marlene Gaines [place] - [facility], 02/06/2015 15:40:43 08/29/19 14 Most Recent Bone Density completed Celia Zabala [facility], 02/08/2016 15:32:27 06/30/19 07 Other completed Marlene [facility], 01/27/2014 09:02:17 06/30/19 04 Other completed Celia Valdez [place] [facility], 02/03/2014 15:59:32 06/30/18 94 Total Abdominal Hysterectomy completed Marlene [facility] in [facility], 04/11/2025 08:05:45 06/30/18 84 Cholecystectomy completed Marlene [facility], 01/27/2014 09:02:17 Imaging Results None recorded. Procedure Notes None recorded. Medical Equipment None Reported. Allergies No known drug allergies Medications Name Sig Start Date Stop Date Status Note LastModified by Organization Details LastModified Time amoxicillin 500 mg capsule TAKE 1 CAPSULE BY MOUTH EVERY 8 HOURS FOR 7 DAYS 10/25 completed Not Available Not Available Not Available atorvastati n 10 mg tablet TAKE 1 TABLET ONCE DAILY active Not Available Not Available No t Available azithromyci n 250 mg tablet TAKE 2 TABLETS BY MOUTH TODAY, THEN TAKE 1 TABLET DAILY FOR 4 DAYS 02/28 completed Not Available Not Available Not Available fluconazole 150 mg tablet Take 1 tablet every week by oral route for 14 days. 04/11 completed Not Available Not Available Not Available metronidazo le 0.75 % (37.5 mg/5 gram) vaginal gel Insert 1 applicato rful every day by vaginal route for 7 days. 04/11 completed Not Available Not Available Not Available prednisone 20 mg tablet TAKE 1 TABLET BY MOUTH EVERY TWELVE HOURS active Not Available Not Available No t Available sumatriptan 50 mg tablet TAKE 1 TAB AT ONSET OF HEADACHE IF NO RELIEF MAY REPEAT 1 TAB AFTER AT LEAST 2 HRS MAX = 4 TABS/DAY active Not Available Not Available No t Available ciprofloxac in 500 mg tablet TAKE 1 TABLET BY MOUTH EVERY 12 HOURS active Not Available Not Available No t Available sulfamethox azole 800 mg-trimetho prim 160 mg tablet TAKE 1 TABLET BY MOUTH TWICE A DAY FOR 3 DYS 03/12 completed Not Available Not Available Not Available oxycodone-a cetaminophe n 5 mg-325 mg tablet TAKE 1 TO 2 TABLETS BY MOUTH EVERY 4 HOURS NEEDED FOR PAIN, MAX 9 TABLETS DAILY active Not Available Not Available No t Available amoxicillin 875 mg tablet TAKE 1 TABLET 2 TIMES PER DAY FOR 10 DAYS FOR INFECTION 05/10 completed Not Available Not Available Not Available Claritin-D 24 Hour 10 mg-240 mg tablet,exte nded release TAKE 1 TABLET BY MOUTH EVERY DAY FOR 15 DAYS 03/12 completed Not Available Not Available Not Available lorazepam 0.5 mg tablet TAKE 1 TABLET BY MOUTH EVERY DAY AT BEDTIME NEEDED FOR 30 DAYS 04/11 completed Not Available Not Available Not Available estradiol 1 mg tablet TAKE 1 TABLET DAILY 2024 active Not Available Not Available Not Avai lable cephalexin 500 mg capsule TAKE ONE CAPSULE BY MOUTH EVERY 8 HOURS active Not Available Not Available No t Available triamcinolo ne acetonide 0.1 % topical ointment APPLY TO AFFECTED AREAS ON LEGS TWICE A DAY FOR 2 WEEKS, BREAK 1 WEEK WITH VASELINE, REPEAT 11/20 completed Not Available Not Available Not Available prednisone 50 mg tablet TAKE 1 TABLET BY MOUTH IN THE MORNING EVERY DAY FOR 3 DAYS 09/07 completed Not Available Not Available Not Available ibuprofen 600 mg tablet TAKE 1 TABLET BY MOUTH 3 TIMES A DAY NEEDED FOR PAIN 10/25 completed Not Available Not Available Not Available estradiol 0.01% (0.1 mg/gram) vaginal cream INSERT 0.5 GRAM VAGINALLY EVERY DAY active Not Available Not Available No t Available Vivelle 0.075 mg/24 hr transdermal patch Apply 1 patch twice a week by transderm al route. 05/14 completed Not Available Not Available Not Available methylpredn isolone 4 mg tablets in a dose pack TAKE 6 TABLETS ON DAY 1 DIRECTED ON PACKAGE AND DECREASE BY 1 TAB EACH DAY FOR A TOTAL OF 6 DAYS 03/16 completed Not Available Not Available Not Available bromphenira mine-pseudo ephedrine-D M 2 mg-30 mg-10 mg/5 mL oral syrup TAKE 10 ML BY MOUTH 3 TIMES A DAY NEEDED FOR CONGESTIO N FOR 7 DAYS 09/07 completed Not Available Not Available Not Available ondansetron 4 mg disintegrat ing tablet TAKE 1 TABLET BY MOUTH EVERY 8 HOURS active Not Available Not Available No t Available amoxicillin 875 mg-potassiu m clavulanate 125 mg tablet TAKE 1 TABLET BY MOUTH TWICE A DAY WITH FOOD FOR 7 DAYS 04/08 completed Not Available Not Available Not Available clindamycin 1 % lotion APPLY TO AFFECTED AREAS ON THE VULVA TWICE DAILY NEEDED 10/25 completed Not Available Not Available Not Available escitalopra m 10 mg tablet TAKE 1 TABLET ONCE DAILY active Not Available Not Available No t Available cyclobenzap rine 5 mg tablet TAKE 1 TABLET BY MOUTH AT BEDTIME NEEDED FOR MUSCLE SPASM active Not Available Not Available No t Available nitrofurant oin monohydrate /macrocryst als 100 mg capsule TAKE 1 CAPSULE BY MOUTH TWICE A DAY FOR 7 DAYS 02/28 completed Not Available Not Available Not Available Centrum Silver Ultra Women's tablet Take by oral route. active Not Available Not Available No t Available Minivelle 0.1 mg/24 hr transdermal patch Apply 1 patch twice a week by transderm al route. 2015 active Not Available Not Available Not Avai lable Vitals Date Recorded Body temperature Heart rate Body height Body mass index (BMI) Body weight Systolic And Diastolic Provider Name and Address Organization Details Last Updated DateTime 5 98.2 [degF] 85 /min 158.75 cm 26.3 kg/m2 24503.4 9 g 144/80 mm[Hg] Marlene Gaines [place] - [facility], 5 08:02:17 Social History Question Answer Notes LastModified by Organizat ion Details LastModified Time Tobacco Smoking Status Never Smoker Not Available [facility] 05/02/2020 03:19:40 How Many Years Have You Consumed Alcohol? 40 Information not available 03/19/2021 What Is Your Level Of Caffeine Consumption? Occasional [id number] Information not available 05/02/2020 In The 14 Days Before Symptom Onset, Have You Had Close Contact With A Laboratory-confir med COVID-19 While That Case Was Ill? No Information not available 03/19/2021 In The 14 Days Before Symptom Onset, Have You Had Close Contact With A Person Who Is Under Investigation For COVID-19 While That Person Was Ill? No Information not available 03/19/2021 Have You Been To An Area Known To Be High Risk For COVID-19? No Information not available 03/19/2021 What Type Of Diet Are You Following? REGULAR [id number] Information not available 05/02/2020 Which Illicit Or Recreational Drugs Have You Used? None [id number] Information not available 05/02/2020 Do You Reside In Or Have You Traveled To An Area Where Ebola Virus Transmission Is Active? No [id number] Information not available 05/02/2020 Education 12 Information no t available 02/03/2014 What Is The Highest Grade Or Level Of School You Have Completed Or The Highest Degree You Have Received? [id number] Information not available 03/19/2021 Who Is Your Employer? [employer] Information not available 10/25/2021 How Many Days In The Past Year Have You Had A Heavy Drinking Consumption (4+ Female, 5+ Male)? 0 Information no t available 05/14/2016 Are There Any Guns Present In Your Home? No Information not available 03/19/2021 High Number Of Sexual Partners No Information not available 05/14/2016 To Which Gender Do You Self-identify? Female Information not available 02/08/2016 Marital Status Informatio n not available 01/27/2014 What Was The Date Of Your Most Recent Tobacco Screening? 04/11/2025 Information not available 04/11/2025 What Is Your Relationship Status? Information not available 03/19/2021 Are You Sexually Active? No Been 2 Yrs. [id number] Information not available 05/02/2020 How Much Tobacco Do You Smoke? No [id number] Information not available 05/02/2020 General Stress Level Low Working On It..with Med Information not available 04/08/2024 How Many Years Have You Smoked Tobacco? 0 [id number] Information not available 05/02/2020 Have You Recently (within The Last 12 Weeks, Or During A Current ) Traveled To Or Lived In A Zika-affected Area? No Information not available 02/08/2016 How Many Days In The Past Year Have You Consumed 4 Or More Drinks? 0 Information no t available 03/19/2021 Sex: Female Functional Status Question Answer Note LastModified by Organizat ion Details LastModified Time Do you use any illicit or recreational drugs? No Information not available 03/19/2021 Do you or have you ever used any other forms of tobacco or nicotine? No Information not available 03/19/2021 What is your level of alcohol consumption? Occasional [id number] Information not available 05/02/2020 Do you or have you ever used smokeless tobacco? Never used smokeless tobacco [id number] Information not available 05/02/2020 Are you currently employed? Yes Information not available 10/25/2021 What is your occupation? [employer] Information not available 01/27/2014 Do you or have you ever used e-cigarettes or vape? Never used electronic cigarettes [id number] Information not available 05/02/2020 What is your exercise level? Heavy [id number] Information not available 05/02/2020 Mental Status Question Answer Note LastModified by Organization D etails LastModified Time Do you feel stressed (tense, restless, nervous, or anxious, or unable to sleep at night)? [id number] Information not available 03/19/2021 Family History Relationship Description Onset Age of this Age Resolved Age Notes LastModified by Organization Details LastModified Time Father Problem prosta te Not available 08/17/2015 16:12:38 Mother Alzheimer's disease Not available 07/31 16:12:38 Paternal Grandmother Diabetes mellitus Not available 07/31 16:12:38 Brother Fibrosis of lung 62 62 x1 Not available 01/29 15:21:52 Brother Fibrosis of lung 65 x1 Not available 07/31 16:12:38 Medical History Condition Response Anesthesia complications N High Blood Pressure N Candidate for MyRisk panel Y Autoimmune Condition N Kidney or Bladder Problems N Thyroid Problems N GI Problems N Lung Disease N Depression N Defects or Inherited Disease N History of Ovarian Cancer N Anemia N History of Breast Cancer N CORY exposure N BRCA testing in past N Osteopenia N Psychiatric Illness N Anxiety Disorder N Diabetes N Arthritis N Headaches or Migraines N Infertility N Asthma N History of Cancer N Endometriosis N Hepatitis N Heart Disease N Hypertension N Osteoporosis N Gynecological History Statement/Question Response If Post Menopausal, Age at Menopause 34 Most Recent Bone Density 08/28/2013 Menses Monthly N Age at Menarche 12 Most Recent Mammogram 01/22/2025 Age at First Child 24 Hormone Replacement Therapy Y Obstetrics History GPAL:G 1 P 1 0 0 1 Type Value Full Term 1 Living 1 Total 1 Immunizations Vaccine Type Date Status Note Provider Nam e and Address Organization Details Recorded Time Influenza, split virus, quadrivalent, preservative 0 completed Marlene Meczywor null, [place] - [facility], 09/07/2020 15:14:44 COVID-19, mRNA, LNP-S, PF, 100 mcg/0.5mL dose or 50 mcg/0.25mL dose 1 completed Marlene Meczywor null, [place] - [facility], 03/19/2021 15:18:20 COVID-19, mRNA, LNP-S, PF, 100 mcg/0.5mL dose or 50 mcg/0.25mL dose 1 completed Marlene Meczywor null, [place] - [facility], 07/02/2022 09:54:58 zoster recombinant 1 completed Marlene Meczywor null, [place] - [facility], 07/02/2022 09:54:58 Influenza, recombinant, quadrivalent, PF 1 completed Marlene Meczywor null, [place] - [facility], 07/02/2022 09:54:58 COVID-19, mRNA, LNP-S, PF, 100 mcg/0.5mL dose or 50 mcg/0.25mL dose 1 completed Marlene Meczywor null, [place] - [facility], 07/02/2022 09:54:58 COVID-19, mRNA, LNP-S, PF, 100 mcg/0.5mL dose or 50 mcg/0.25mL dose 1 completed Marlene Meczywor null, [place] - [facility], 07/02/2022 09:54:58 COVID-19, mRNA, LNP-S, PF, 100 mcg/0.5mL dose or 50 mcg/0.25mL dose 2 completed Marlene Meczywor null, [place] - [facility], 07/02/2022 09:54:58 zoster recombinant 1 completed Marlene Meczywor null, [place] - [facility], 07/02/2022 09:54:58 Influenza, MDCK, quadrivalent, PF 2 completed Marlene Meczywor null, [place] - [facility], 04/08/2024 15:17:13 Influenza, adjuvanted, trivalent, PF 4 completed Not Available [facility] 04/11/2025 07:56:17 Pneumococcal conjugate PCV20, polysaccharide [id number] conjugate, adjuvant, PF 4 completed Not Available [facility] 04/11/2025 07:56:17 Influenza, split virus, quadrivalent, PF 3 completed Not Available [facility] 04/11/2025 07:56:17 Influenza, adjuvanted, trivalent, PF 5 completed Not Available [facility] 04/11/2025 07:56:17 Past Encounters Encounter ID Performer Location Encounter Start Date Encounter Closed Date Diagnosis/Indication Diagnosis SNOMED-CT Code Diagnosis ICD10 Code Diagnosis IMO Codes Diagnosis Note [id number] MD VEE Long MD [address] [place] [address] [address] [place] [address] 04/11/2025 07:55:04 04/11/2025 14:22:48 Menopausal syndrome 724183569 N95.1 Specialize d medical examination 17338258 Z01.419 Screening for malignant neoplasm of rectum 176892725 Z12.12 Screening mammography 24 267773 Z12.31 History of vaginal intraepithelial neoplasia 2706474757 61650 Z87.411 Health Concerns Section Related Observation LastModified by Organization Detai ls LastModified Time None Recorded Concern Status LastModified by Organization Details LastModified Time None Recorded Payers Encounter Date Sequence Insurance Name Policy Number Policy Trejo Covered Member ID Trejo Member ID Guarantor Name 04/11/2025 1 KENNETH (PPO) [id number] Olivia Hatfield [id number] Olivia Hatfield Notes Date Note Type Note Provider Name and Address Organization Details Recorded Time 04/11/2025 text/html She is here for annual exam, doing well on her HRT, elects to continue. She does not want a refill on the estradiol cream yet as she has too much already. Past history of vaginal dysplasia. Note from 2023: She is here for annual, doing well on vaginal and oral ERT, elects to continue. 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 Vee Huertas MD [address] [place] [address],[id number], [facility], [id number], [place] - [facility], 04/11/2025 08:21:22 OBGyn Episode No OBEpisode recorded.
--- OUTSIDE RECORDS SUMMARY | 2025-06-04 06:47 | XMS_ITS | Data Portability ---
Author Organization [place] - [facility] in [facility],, VEE HUERTAS MD Address [address] [address] Care Team Providers Care Furniture Detailer Name Role Phone SUJATA, KARTIK Primary Care Provider Assessment No assessment recorded. Plan of Treatment Reminders Order Date Submit Date Provider Last Modified By Organization Details Last Modified Time Details Appointments None recorded. Lab cytology report, thin prep, smear or scraping, cervical or vaginal 2024 025 ELSA [facility] (Centralized Electronic Ordering - All Locations), Patient Can Go To The Location Of Their Choice, [id number] 5 18:15:54 hemoglobin , gastrointe stinal, stool 2024 025 [email or web address] 1 In-Office Order, Internal Use Only DO Not Attach Compendium DO Not Attach Compendium, Do Not Delete/merge, [id number] 08:20:16 wet mount, vaginal 2023 024 [email or web address] 1 In-Office Order, Internal Use Only DO Not Attach Compendium DO Not Attach Compendium, Do Not Delete/merge, [id number] 4 10:21:30 cytology report, thin prep, smear or scraping, cervical or vaginal 2023 024 ELSA [facility] (Centralized Electronic Ordering - All Locations), Patient Can Go To The Location Of Their Choice, [id number] 4 18:05:48 hemoglobin , gastrointe stinal, stool 2023 024 [email or web address] 1 In-Office Order, Internal Use Only DO Not Attach Compendium DO Not Attach Compendium, Do Not Delete/merge, [id number] 4 15:43:40 pap test, thinprep, cervical 2022 023 [email or web address] [facility] (Centralized Electronic Ordering - All Locations), Patient Can Go To The Location Of Their Choice, [id number] 3 07:47:53 fecal occult blood, stool 2022 023 [email or web address] 1 In-Office Order, Internal Use Only DO Not Attach Compendium DO Not Attach Compendium, Do Not Delete/merge, [id number] 3 08:33:54 Referral None recorded. Procedures None recorded. Surgeries None recorded. Imaging MAMMO, screening, digital, bilateral - Breast Aspiration and/or Biopsy if needed 2024 025 [facility] Orders, [address], [address], [place], [address], 5 14:22:48 MAMMO, screening, digital, bilateral - Breast Aspiration and/or Biopsy if needed 2023 024 [facility] Orders, [address], [address], [place], [address], 5 21:25:50 MAMMO, screening, digital, bilateral - Breast Aspiration and/or Biopsy if needed 2022 023 [facility] Orders, [address], [address], [place], [address], 4 17:02:58 US, breast, unilateral , w/ axilla - left axillae, 15 cm from nipple, at the 2 o'clock, patient has a 4 mm, rubbery, painful density that has been painful for 4 weeks 2022 023 [email or web address], [address], [address], [place], [address], 3 07:45:53 MAMMO, diagnostic , digital, unilateral - left axillae, 15 cm from nipple, at the 2 o'clock, patient has a 4 mm, rubbery, painful density that has been painful for 4 weeks 2022 023 [facility] Orders, [address], [address], [place], [address], 3 14:33:22 Medication Orders estradiol 1 mg tablet 2024 025 [facility], [place], [address], 5 08:20:18 metronidaz ole 0.75 % (37.5 mg/5 gram) vaginal gel 2023 025 [id number], [address] [place], [address], 5 08:03:24 fluconazol e 150 mg tablet 2023 025 [id number], [address] [place], [address], 5 08:03:16 estradiol 1 mg tablet 2023 024 [facility], [place], [address], 4 15:43:42 estradiol 0.01% (0.1 mg/gram) vaginal cream 2022 023 [facility], [place], [address], 3 08:35:00 estradiol 1 mg tablet 2022 023 [facility], [place], [address], 08:34:59 Patient TargetsNo targets recorded. Patient Instructions Encounter Date Encounter Id Patient Instructions Last Modified By Organization Details Last Modified Time 07/02/2022 [id number] She is here because she has had 4 weeks of intermittent burning pain in her left axilla. On exam: left axilla, 15 cm from nipple, at the 2 o'clock, patient has a 4 mm, rubbery, painful density. this may be an inflamed lymph node. When pressed she notes this replicates the pain she has been noting. We will check mammogram and sonogram of the area. Her mammo in 01/18 was negative. IF pain persists I offered that she can be referred [place] [facility], she understands and will call if pain persists even if testing is negative. Not available 07/02/2022 13:02:06 04/07/2023 [id number] learning about healthy weight Not available 04/07/2023 08:33:54 She is here for annual, doing well on vaginal and oral ERT, elects to continue. 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 Is using estradiol vaginal cream to help improve the health of the vaginal tissues. Also taking oral estradiol, elects to continue. She appears to be doing well. Monthly self breast exam was taught, and stressed, and is advised to call if she discovers any new mass in the breast. Not available 04/07/2023 08:34:35 04/08/2024 [id number] learning about healthy weight Not available 04/08/2024 15:43:40 She is here for annual, doing well on vaginal and oral ERT, elects to continue. 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 Not available 04/08/2024 15:45:32 04/16/2024 [id number] bacterial vaginosis: care instructions Not available 04/16/2024 10:21:28 vaginal yeast infection: care instructions Not available 04/16/2024 10:21:28 She is here for a complaint of vaginal odor and discharge, with pruritis on and off. Her recent pap had both clue cells and monilia. She has both symptomatic bv and monilia. Rx yeast wiht diflucan. Rx bacterial vaginosis with metrogel. Call if symptoms persists or recur. Also advised to use RepHresh or boric acid 600 mg vaginal capsules twice a week for a month or two to improve the pH. Not available 04/16/2024 10:33:02 04/11/2025 [id number] learning about healthy weight Not available 04/11/2025 08:20:16 She is here [...] HRT is called in to the pharmacy. l Not available 04/11/2025 08:21:00 Reason for Referral None Reported. Results Created Date Observation Date Name Description Value Unit Range Abnormal Flag Note LastModifiedBy Organization Detail LastModifiedTime 04/07/20 23 04/07/2023 [facility] CYTOL OGY results Irene nt Name: BARB CLAY, THERE SE Bonilla nt : 1959 (Age: 63) Lab Acces becky #: [id number] Colle ction Date: 2022 Acces becky Date: 2022 Sign Out Date: 04/14 Tissu e Sourc e: 1: THINP REP HISTOPATH TECH PAP TEST, CERVI KEITH: Final Diagn osis: NEGAT KARLA FOR INTRA EPITH ELIAL LESIO N OR MALMALLY LANG . Satis facto ry for evalu ation . Endoc ervic al/tr ansfo rmati on zone ABSEN T. Clini keith Histo ry: Date of Last Menst rual Perio d: not avail able Menst rual Histo ry: Post- menop ausal Contr acept karla Histo ry: not avail able Ancil dorothy putnam: HPV (ASCU S) Case image d by the Thin rep Chayi jersey Systvernell m with gerardo cabral or soni regan Perfo rmed at [facility] ate Refer ence Labor [facility] Cytol ogy, [address] [place] Clini keith Histo ry (othe r): Z01.4 19, ROUTI NE SCREE N, LPS 03/20 NEG Phone #: [phone], On-Ca ll Patho logis t: [id number] Not Available [facility] (Centralized Electronic Ordering - All Locations) Patient Can Go To The Location Of Their Choice, [id number] 04/14/2023 09:46:32 04/07/20 23 04/07/2023 fecal occul t blood , stool Occult Blood negati ve Not Available In-Office Order Internal Use Only DO Not Attach Compendium DO Not Attach Compendium, Do Not Delete/merge, [id number] 04/07/2023 08:01:50 04/08/20 24 04/14/2024 IGP, RFX APTIM A HPV ASCU diagnosis: Commen t NEGAT KARLA FOR INTRA EPITH ELIAL LESIO N OR KENDRA LANG . FUNGA L ORGAN ISMS MORPH OLOGI JOSE ELIAS CONSI STENT WITH CELE DA SPECI ES ARE PRESE NT. PREDO MINAN CE OF COCCO BACIL LI CONSI STENT WITH SHIFT IN VAGIN AL SONDRA IS PRESE NT. Not Available [facility] ([facility]) [address] [facility], [place], [address], 04/14/2024 18:05:47 04/08/20 24 04/14/2024 IGP, RFX APTIM A HPV ASCU specimen adequacy: Commen t Satis facto ry for evalu ation . Not Available [facility] ([facility]) [address] [facility], [place], [address], 04/14/2024 18:05:47 04/08/2004/14/2024 IGP, RFX APTIM A HPV ASCU clinician provided ICD10: Juan Jose durbin Z01.4 19 Not Available [facility] ([facility]) [address] [place], [address], 04/14/2024 18:05:47 04/08/2004/14/2024 IGP, RFX APTIM A HPV ASCU performed by: Luis Eduardo Hurd (ASCP ) Not Available [facility] ([facility]) [address] [place], [address], 04/14/2024 18:05:47 04/08/2004/14/2024 IGP, RFX APTIM A HPV ASCU . . Not Available [facility] ([facility]) [address] [facility], [place], [address], 04/14/2024 18:05:47 04/08/2004/14/2024 IGP, RFX APTIM A HPV ASCU note: [...] ts do occur . Not Available [facility] ([facility]) [address] [place], [address], 04/14/2024 18:05:47 04/08/2004/14/2024 IGP, RFX APTIM A HPV ASCU test methodology: Juan Jose durbin This liqui d based ThinP rep(R ) pap test was scree brandy with the use of an image guide d systvernell m. Not Available [facility] ([facility]) [address] [place], [address], 04/14/2024 18:05:47 04/08/2004/14/2024 IGP, RFX APTIM A HPV ASCU . Commen t The HPV DNA refle x crite fanny were not met with this speci men resul t there fore, no HPV testi ng was perfo rmed. Not Available [facility] ([facility]) [address] [facility], [place], [address], 04/14/2024 18:05:47 04/08/20 24 04/08/2024 hemog lobin , gastr ointe james l, stool Occult Blood negati ve Not Available In-Office Order Internal Use Only DO Not Attach Compendium DO Not Attach Compendium, Do Not Delete/merge, 04/08/2024 15:20:16 04/16/20 24 04/16/2024 wet mount , vagin al Clue Cells positi ve Not Available In-Office Order Internal Use Only DO Not Attach Compendium DO Not Attach Compendium, Do Not Delete/merge, 04/16/2024 10:19:15 04/16/2004/16/2024 wet mount , vagin al Trichomonas negati ve Not Available In-Office Order Internal Use Only DO Not Attach Compendium DO Not Attach Compendium, Do Not Delete/merge, 04/16/2024 10:19:15 04/16/20 24 04/16/2024 wet mount , vagin al Hyphae positi ve Not Available In-Office Order Internal Use Only DO Not Attach Compendium DO Not Attach Compendium, Do Not Delete/merge, 04/16/2024 10:19:15 04/16/2004/16/2024 wet mount , vagin al atrophic epithelium positi ve Not Available In-Office Order Internal Use Only DO Not Attach Compendium DO Not Attach Compendium, Do Not Delete/merge, 04/16/2024 10:19:15 04/11/20 25 04/13/2025 IGP, RFX APTIM A HPV ASCU diagnosis: Commen t NEGAT KARLA FOR INTRA EPITH ELIAL LESIO N OR KENDRA LANG . Not Available [facility] ([facility]) [address] [place], [address], 04/13/2025 18:15:54 04/11/2004/13/2025 IGP, RFX APTIM A HPV ASCU specimen adequacy: Juan Jose durbin Satis facto ry for evalu ation . Not Available [facility] ([facility]) [address] [place], [address], 04/13/2025 18:15:54 04/11/2004/13/2025 IGP, RFX APTIM A HPV ASCU clinician provided ICD10: Juan Jose durbin Z01.4 19 Not Available [facility] ([facility]) [address] [place], [address], 04/13/2025 18:15:54 04/11/2004/13/2025 IGP, RFX APTIM A HPV ASCU performed by: Juan Jose Urrutia Cytol ogmilad (ASCP ) Not Available [facility] ([facility]) [address] [place], [address], 04/13/2025 18:15:54 04/11/2004/13/2025 IGP, RFX APTIM A HPV ASCU . . Not Available [facility] ([facility]) [address] [place], [address], 04/13/2025 18:15:54 04/11/2004/13/2025 IGP, RFX APTIM A [...] ts do occur . Not Available [facility] ([facility]) [address] [facility], [place], [address], 04/13/2025 18:15:54 04/11/2004/13/2025 IGP, RFX APTIM A HPV ASCU test methodology: Commen t This liqui d based ThinP rep(R ) pap test was chance nava with the use of an image guide sydnee reyes. Not Available [facility] ([facility]) [address] [facility], [place], [address], 04/13/2025 18:15:54 04/11/2004/13/2025 IGP, RFX APTIM A HPV ASCU . Commen t The HPV DNA refle x crite fanny were not met with this speci men resul t there fore, no HPV testi ng was perfo rmed. Not Available [facility] ([facility]) [address] [facility], [place], [address], 04/13/2025 18:15:54 04/11/2004/11/2025 hemog lobin , gastr ointe james l, stool Occult Blood negati ve Not Available In-Office Order Internal Use Only DO Not Attach Compendium DO Not Attach Compendium, Do Not Delete/merge, [id number] 04/11/2025 08:06:10 07/05/1907/05/2022 MAMMO , diagn ostic , digit al, unila teral No observ ation record ed. [facility] [address], [place], [address], 07/05/2022 14:47:47 01/21/2001/18/2023 MAMMO , chance blackmang, digit al, bilat eral No observ ation record ed. [facility] [address], [place], [address], 01/21/2023 10:43:43 01/20/20 24 01/20/2024 MAMMO , scree thomas, digit al, bilat eral No observ ation record ed. [facility] [address] [place], [address], 01/21/2024 08:02:56 01/23/2001/22/2025 MAMMO , scree thomas, digit al, bilat eral No observ ation record ed. [facility] [address] [place], [address], 01/23/2025 12:11:46 Result Notes None recorded. Problems Name Problem SNOMED Code Status Onset Date Resolution Date Notes Provider Name and Address Organization Details Recorded Time Menopause present 458650594 Active Vee Huertas MD [address], [place], [address], [place] - [facility], 6 16:13:38 Endometri osis Active history of, had hysterect julio cesar due to this Vee Huertas MD [address], [place], [address], [place] [facility], 6 16:13:38 Breast lump 50955301 Active Vee Huertas MD [address], [place], [address], [place] [facility], 6 16:13:38 Cytologic finding 012841556 Active Vee Huertas MD [address], [place], [address], [place] [facility], 6 16:17:41 Acute lower urinary tract infection 577452406 Active Vee Huertas MD [address], [place], [address], [place] [facility], 6 16:13:38 Abnormal vaginal Papanicol aou smear 843414114 Active Vee Huertas MD [address], [place], [address], [place] [facility], 6 16:13:38 History of vaginal intraepit helial neoplasia 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 Vee Huertas MD [address], [place], [address], [place] [facility], 9 16:12:10 Atrophic vaginitis 40729542 Active 2021 Vee Huertas MD [address], [place], [address], [place] [facility], 2 15:39:27 Problem Notes None recorded. Procedures Surgical History Date Name Laterality Status Provider Name and Address Organization Details Recorded Time 01/23/20 25 Most Recent Mammogram completed Marlene Zabala [facility], 03/28/2025 11:08:07 02/17/20 20 Colposcopy completed MD [address], [place], [address], [place] [facility], 02/17/2020 16:03:15 04/02/20 18 Colposcopy completed MD [address] [place], [address], [place] - [facility], 04/02/2018 16:28:23 11/19/19 17 Colposcopy completed Vee Huertas MD [address], [place], [address], [place] - [facility], 11/18/2016 15:43:09 08/19/19 17 Colposcopy completed Vee Huertas MD [address], [place], [address], [place] - [facility], 08/20/2016 09:46:04 08/17/19 16 Colposcopy completed Vee Huertas MD [address], [place], [address], [place] - [facility], 08/17/2015 16:18:43 02/18/20 15 Colposcopy completed Vee Huertas MD [address], [place], [address], [place] [facility], 02/17/2015 14:30:28 06/30/19 15 Other completed Marlene Gaines [place] - [facility], 02/06/2015 15:40:43 08/29/19 14 Most Recent Bone Density completed Celia Valdez [place] - [facility], 02/08/2016 15:32:27 06/30/19 07 Other completed Marlene Gaines [place] - [facility], 01/27/2014 09:02:17 06/30/19 04 Other completed Celia Valdez [place] - [facility], 02/03/2014 15:59:32 06/30/18 94 Total Abdominal Hysterectomy completed Marlene Gaines [place] - [facility], 04/11/2025 08:05:45 06/30/18 84 Cholecystectomy completed Marlene Gaines [place] - [facility], 01/27/2014 09:02:17 Imaging Results None recorded. Procedure [...] Not Avai lable Vitals Date Recorded Body height Body mass index (BMI) Body weight Heart rate Body temperature Systolic And Diastolic Provider Name and Address Organization Details Last Updated DateTime 3 157.48 cm 25.5 kg/m2 71849.0 6 g 103 /min 97.5 [degF] 155/98 mm[Hg] Marlene [facility] in [facility], 3 09:53:55 Date Recorded Body height Body mass index (BMI) Body weight Heart rate Systolic And Diastolic Provider Name and Address Organization Details Last Updated DateTime 04/07/2023 157.48 cm 24.3 kg/m2 41510.79 g 78 /min 133/72 mm[Hg] Юлия [facility] in [facility], 04/07/2023 08:04:26 Date Recorded Body weight Body mass index (BMI) Body height Heart rate Systolic And Diastolic Provider Name and Address Organization Details Last Updated DateTime 04/08/2024 76879.34 g 25 kg/m2 158.75 cm 70 /min 139/83 mm[Hg] Marlene Chino in [facility], 04/08/2024 15:16:36 Date Recorded Body temperature Heart rate Body height Body mass index (BMI) Body weight Systolic And Diastolic Provider Name and Address Organization Details Last Updated DateTime 5 98.2 [degF] 85 /min 158.75 cm 26.3 kg/m2 21459.4 9 g 144/80 mm[Hg] Marlene Chino in [facility], 5 08:02:17 Date Recorded Body height Body mass index (BMI) Body weight Body temperature Heart rate Systolic And Diastolic Provider Name and Address Organization Details Last Updated DateTime 4 158.75 cm 25 kg/m2 41815.3 4 g 98.1 [degF] 82 /min 138/66 mm[Hg] Marlene Chino in [facility], 4 09:53:54 Social History Question Answer Notes LastModified by Organizat ion Details LastModified Time Tobacco Smoking Status Never Smoker Not Available [employer] 05/02/2020 03:19:40 How Many Years Have You Consumed Alcohol? 40 Information not available 03/19/2021 What Is Your Level Of Caffeine Consumption? Occasional [id number] Information not available 05/02/2020 In The 14 [...] Type Of Diet Are You Following? REGULAR [id number] Information not available 05/02/2020 Which Illicit Or Recreational Drugs Have You Used? None [id number] Information not available 05/02/2020 Do You Reside In Or Have You Traveled To An Area Where Ebola Virus Transmission Is Active? No [id number] Information not available 05/02/2020 Education 12 Information no t available 02/03/2014 What Is The Highest Grade Or Level Of School You Have Completed Or The Highest Degree You Have Received? [id number] Information not available 03/19/2021 Who Is Your [...] You Sexually Active? No Been 2 Yrs. [id number] Information not available 05/02/2020 How Much Tobacco Do You Smoke? No [id number] Information not available 05/02/2020 General Stress Level Low Working On It..with Med Information not available 04/08/2024 How Many Years Have You Smoked Tobacco? 0 [id number] Information not available 05/02/2020 Have You Recently [...] is your level of alcohol consumption? Occasional [id number] Information not available 05/02/2020 Do you or have you ever used smokeless tobacco? Never used smokeless tobacco [id number] Information not available 05/02/2020 Are you currently employed? Yes Information not available 10/25/2021 What is your occupation? [employer] Information not available 01/27/2014 Do you or have you ever used e-cigarettes or vape? Never used electronic cigarettes [id number] Information not available 05/02/2020 What is your exercise level? Heavy [id number] Information not available 05/02/2020 Mental Status Question Answer Note LastModified by Organization D etails LastModified Time Do you feel stressed (tense, restless, nervous, or anxious, or unable to sleep at night)? [id number] Information not available 03/19/2021 Family History Relationship [...] for MyRisk panel Y Autoimmune Condition N Thyroid Problems N Kidney or Bladder Problems N Depression N GI Problems N Lung Disease N Defects or Inherited Disease N Anemia N History of Ovarian Cancer N History of Breast Cancer N CORY exposure N BRCA testing in past N Osteopenia N Psychiatric Illness N Diabetes N Anxiety Disorder N Arthritis N Headaches or Migraines N [...] virus, quadrivalent, preservative 0 completed Marlene Meczywor yun [place] Sagrario [place] in [facility], 09/07/2020 15:14:44 COVID-19, mRNA, LNP-S, PF, 100 mcg/0.5mL dose or 50 mcg/0.25mL dose 1 completed Marlene Meczywor null [place] - [facility], 03/19/2021 15:18:20 COVID-19, mRNA, LNP-S, PF, 100 mcg/0.5mL dose or 50 mcg/0.25mL dose 1 completed Marlene Meczywor null [place] - [facility], 07/02/2022 09:54:58 zoster recombinant 1 completed Marlene Meczywor null [place] - [facility], 07/02/2022 09:54:58 Influenza, recombinant, quadrivalent, PF 1 completed Marlene Meczywor null [place] - [facility], 07/02/2022 09:54:58 COVID-19, mRNA, LNP-S, PF, 100 mcg/0.5mL dose or 50 mcg/0.25mL dose 1 completed Marlene Meczywor null, [place] - [facility], 07/02/2022 09:54:58 COVID-19, mRNA, LNP-S, PF, 100 mcg/0.5mL dose or 50 mcg/0.25mL dose 1 completed Marlene Meczywor null, [place] - [facility], 07/02/2022 09:54:58 COVID-19, mRNA, LNP-S, PF, 100 mcg/0.5mL dose or 50 mcg/0.25mL dose 2 completed Marlene Meczywor null, [place] - [facility], 07/02/2022 09:54:58 zoster recombinant 1 completed Marlene Meczywor null, [place] - [facility], 07/02/2022 09:54:58 Influenza, MDCK, quadrivalent, PF 2 completed Marlene Meczywor null, [place] - [facility], 04/08/2024 15:17:13 Influenza, adjuvanted, trivalent, PF 4 completed Not Available [facility] 04/11/2025 07:56:17 Pneumococcal conjugate PCV20, polysaccharide COD860 conjugate, adjuvant, PF 4 completed Not Available [facility] 04/11/2025 07:56:17 Influenza, split virus, quadrivalent, PF 3 completed Not Available [facility] 04/11/2025 07:56:17 Influenza, adjuvanted, trivalent, PF 5 completed Not Available [facility] 04/11/2025 07:56:17 Past Encounters Encounter ID Performer Location Encounter Start Date Encounter Closed Date Diagnosis/Indication Diagnosis SNOMED-CT Code Diagnosis ICD10 Code Diagnosis IMO Codes Diagnosis Note [id number] MD VEE Long MD [address] [facility] [place] [address] 02/03/2014 15:26:10 02/04/2014 09:38:06 Specialized medical examination [id number] Screening for malignant neoplasm of rectum 724107353 Screening mammography 29900367 Menopause present [id number] MD VEE Long MD [address] [place] [address],[place] [address] 02/24/2014 14:50:03 02/24/2014 16:10:03 Breast lump [id number] MD VEE Long MD [address] [place] [address],[place] [address] 02/06/2015 15:10:51 02/06/2015 16:23:01 Specialized medical examination 46120707 Screening for malignant neoplasm of rectum 443741908 Screening mammography 33811224 Menopause present [id number] MD VEE Long MD [address] [place] [address],[place] [address] 02/17/2015 12:50:49 02/17/2015 15:16:02 Cytologic finding [id number] MD VEE Long MD [address] [place] [address],[place] [address] 02/28/2015 09:12:07 02/28/2015 11:28:31 Acute lower urinary tract infection [id number] MD VEE Long MD [address] [place] [address],[place] [address] 06/01/2015 09:24:34 06/01/2015 13:56:10 Abnormal vaginal Papanicolaou smear 410247899 R87.629 [id number] MD VEE Long MD [address] [place] [address],[place] [address] 08/17/2015 15:13:05 08/17/2015 16:26:08 Cytologic finding [id number] R87.612 [id number] MD VEE Long MD [address] [place] [address],[place] [address] 02/08/2016 15:10:32 02/09/2016 07:57:21 Screening for malignant neoplasm of rectum 082594560 Z12.12 Screening mammography 24 782995 Z12.31 Specialize d medical examination 40835360 Z01.419 Menopause present 817008 006 N95.1 [id number] MD VEE Long MD [address] [place] [address], [place] [address] 05/14/2016 15:10:06 05/15/2016 08:30:33 Atypical squamous cells of undetermined significance on vaginal Papanicolaou smear 495636674 R87.620 Candidal vulvovaginitis 08314552 B37.3 [id number] MD VEE Long MD [address] [place] [address], [place] [id number] 08/19/2016 15:09:55 08/20/2016 09:48:34 Cytologic finding [id number] R87.612 [id number] MD VEE Long MD [address] [place] [address],[facility] [place] [id number] 08/30/2016 09:35:23 08/30/2016 11:42:38 Acute lower urinary tract infection 785268181 R30.0 [id number] MD VEE Long MD [address] [place] [address], [place] [address] 11/18/2016 15:11:39 11/18/2016 15:58:32 Cytologic finding [id number] R87.612 [id number] MD VEE Long MD [address] [place] [address], [place] [address] 02/28/2017 10:52:17 02/28/2017 13:55:26 Specialized medical examination 46414788 Z01.419 Screening for malignant neoplasm of rectum 391406696 Z12.12 Screening mammography 24 600504 Z12.31 Menopause present 749777 006 N95.1 [id number] MD VEE Long MD [address] [place] [address], [place] [address] 03/12/2018 15:09:47 03/13/2018 08:04:43 Menopause present 852563025 N95.1 Specialize d medical examination 22569033 Z01.419 Screening for malignant neoplasm of rectum 930327080 Z12.12 Screening mammography 24 082154 Z12.31 [id number] MD VEE Long MD [address] [place] [address] Erick [facility] [facility] [place] [id number] 04/02/2018 14:32:55 04/03/2018 10:04:47 Cytologic finding [id number] R87.612 [id number] MD VEE Long MD [address] [place] [address] [place] [address] 03/16/2019 15:08:47 03/16/2019 16:18:05 Menopause present 788814070 N95.1 Specialize d medical examination 49379452 Z01.419 Screening for malignant neoplasm of rectum 699230547 Z12.12 Screening mammography 24 238522 Z12.31 Menopausal syndrome 1237 92793 N95.1 Vaginal intraepithelial neoplasia grade 1 702296111 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.0 [id number] MD VEE Long MD [address] [place] [address] [place] [address] 05/10/2019 10:06:15 05/10/2019 13:04:29 Osteopenia 886016465 M85.852 [id number] MD VEE Long MD [address] [place] [address] [place] [address] 09/13/2019 15:10:22 09/14/2019 14:30:24 Atypical squamous cells of undetermined significance on cervical Papanicolaou smear 857250448 R87.610 [id number] MD VEE Long MD [address] [place] [address] [place] [address] 11/26/2019 15:10:06 11/26/2019 15:43:36 Atypical squamous cells of undetermined significance on vaginal Papanicolaou smear 236951232 R87.620 [id number] MD VEE Long MD [address] [place] [address] [place] [address] 02/17/2020 15:10:59 02/18/2020 08:07:33 Cytologic finding 303274015 R87.612 [id number] MD VEE Long MD [address] [place], [place] [address]H[place] 03/16/2020 15:08:42 03/16/2020 15:46:22 Specialized medical examination 54583958 Z01.419 Screening for malignant neoplasm of rectum 119894681 Z12.12 Screening mammography 24 179692 Z12.31 Menopause present 437327 006 N95.1 [id number] MD VEE Long MD [address] [place] [address] [place] 5 09/07/2020 15:10:14 09/07/2020 15:27:52 Atypical squamous cells of undetermined significance on vaginal Papanicolaou smear 897485270 R87.620 [id number] MD VEE Long MD [address] [place], [place] [address] 5 11/03/2020 08:21:18 11/03/2020 10:47:20 Atypical squamous cells of undetermined significance on cervical Papanicolaou smear 131754013 R87.610 [id number] MD VEE Long MD [address] [place], [place] [address] [address] 11/20/2020 14:50:45 01/02/2021 14:17:29 Vaginal intraepithelial neoplasia grade 1 356407327 N89.0 Atrophic vaginitis 39894 000 N95.2 [id number] MD VEE Long MD [address] [place], [place] [address] 5 03/19/2021 15:04:53 03/19/2021 16:00:32 Specialized medical examination 91275331 Z01.419 Screening for malignant neoplasm of rectum 464039475 Z12.12 Screening mammography 24 249108 Z12.31 Abnormal v aginal Papanicolaou smear 381453648 R87.629 History of vaginal intraepithelial neoplasia 3625716992 78811 Z87.411 [id number] MD VEE Long MD [address] [place] [address] E[address] [facility] [place] [address] 10/25/2021 15:02:00 10/25/2021 15:48:43 Atypical squamous cells of undetermined significance on cervical Papanicolaou smear 387629532 R87.610 [id number] MD VEE Long MD [address] [place] [address] E[place] [facility] [place] [address] 03/19/2022 15:01:12 03/19/2022 15:55:44 Specialized medical examination 87866286 Z01.419 Screening for malignant neoplasm of rectum 112977776 Z12.12 Screening mammography 24 599905 Z12.31 History of vaginal intraepithelial neoplasia 0271161802 32793 Z87.411 Menopausal syndrome 1237 88770 N95.1 Atrophic vaginitis 56161 000 N95.2 [id number] MD VEE Long MD [address] [place] [address] [place] [address] 07/02/2022 09:47:33 07/02/2022 13:05:41 Lump of axillary tail of left breast 2181163763 57980 N63.32 [id number] MD VEE Long MD [address] [place] [address] [place] [address] 04/07/2023 08:00:51 04/07/2023 10:56:50 Specialized medical examination 59465381 Z01.419 Screening for malignant neoplasm of rectum 190974339 Z12.12 Screening mammography 24 378916 Z12.31 Menopausal syndrome 1237 08782 N95.1 Atrophic vaginitis 15465 000 N95.2 [id number] MD VEE Long MD [address] [place] [address] [place] [address] 04/08/2024 15:03:27 04/08/2024 15:56:26 Menopausal syndrome 560565899 N95.1 Specialize d medical examination 09085414 Z01.419 Screening for malignant neoplasm of rectum 533564866 Z12.12 Screening mammography 24 322328 Z12.31 [id number] MD VEE Long MD [address] [facility],[address] [place] [address] 04/16/2024 09:47:42 04/16/2024 10:36:51 Candidal vulvovaginitis 23729578 B37.31 Vulvitis 84026911 N76.2 B96.89 [id number] MD VEE Long MD [address] [facility], [address] [place] [address] 04/11/2025 07:55:04 04/11/2025 14:22:48 Menopausal syndrome 703700605 N95.1 Specialize d medical examination 11602100 Z01.419 Screening for malignant neoplasm of rectum 450247011 Z12.12 Screening mammography 24 765108 Z12.31 History of vaginal intraepithelial neoplasia 5553738831 81828 Z87.411 Health Concerns Section Related Observation LastModified by Organization Detai ls LastModified Time None Recorded Concern Status LastModified by Organization Details LastModified Time None Recorded Advance Directives Directive None Recorded Payers Insurance Date Sequence Insurance Name Policy Number Policy Trejo Covered Member ID Trejo Member ID Guarantor Name 02/17/2020 1 [place] [facility] (HMO) [id number] Moises Alysia [id number] Olivia Alysia 04/08/2025 1 [place] [id number] Olivia L Alysia [id number] Olivia Alysia Notes Date Note Type Note Provider Name and Address Organization Details Recorded Time 07/02/2022 text/html She is here because she has had 4 weeks of intermittent burning pain in her left axilla. Vee Huertas MD [address] [facility],[address], [place], [address], [place] [facility], 07/02/2022 13:02:20 04/07/2023 text/html She is here for annual, doing well on vaginal and oral ERT, elects to continue. 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 Note from 2021: She is here for annual exam, has histroy of VAIN though pap last year was negative for dysplasia.Is using estradiol vaginal cream to help improve the health of the vaginal tissues. Also taking oral estradiol, elects to continue. Vee Huertas MD [address], [place], [address], [place] [facility], 04/07/2023 08:35:21 04/08/2024 text/html She is here for annual, doing well on vaginal and oral ERT, elects to continue. 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 Vee Huertas MD [address], [place], [phone], [facility] [facility], 04/08/2024 15:45:51 04/16/2024 text/html She is here for a complaint of vaginal odor and discharge, with pruritis on and off. Her recent pap had both clue cells and monilia. Vee Huertas MD [address], [place], [address], [facility], 04/16/2024 10:33:19 04/11/2025 text/html She is here for annual [...] he had Colaris testing. Vee Huertas MD [address], [place], [phone], [facility] [facility], 04/11/2025 08:21:22 OBGyn Episode No OBEpisode recorded.
[2025-06-04 11:15] LABS: MANUAL DIFF FLAG NO
[2025-06-04 11:19] LABS: Hematocrit 39.8 % (37.0-47.0); Hemoglobin 13.2 g/dl (12.0-16.0); Imm Gran Abs Auto 0.01 X10*3/uL (0.00-0.03); Imm Gran Pct Auto 0.2 % (0.0-0.4); Lymphocytes Absolute Auto 1.8 X10*3/uL (1.2-4.9); Mean Corpuscular HGB Conc 33.2 g/dl (31.0-35.0); Mean Corpuscular Hemoglobin 29.4 pg (27.0-33.0); Mean Corpuscular Volume 88.6 fL (80.0-98.0); NRBC Abs Auto 0.000 X10*3/uL (0.0-0.012); NRBC Pct Auto 0.0 /100WBC (0.0-0.2); Platelet Count 290 X10*3/uL (160-400); Red Blood Count 4.49 X10*6/uL (4.20-5.50); White Blood Count 6.3 X10*3/uL (4.8-10.8)
[2025-06-04 12:00] LABS: Alanine Aminotransferase 13 U/L (0-31); Albumin Level 4.2 g/dL (3.5-5.0); Alkaline Phosphatase 69 U/L (39-117); Anion Gap 11 (12-20); Aspartate Amino Transferase 24 U/L (5-31); Blood Urea Nitrogen 16 mg/dL (9-16); Calcium 9.0 mg/dL (8.4-10.2); Carbon Dioxide 25 mmol/L (22-29); Chloride 109 mmol/L (96-108); Cholesterol 180 mg/dL (<200); Estimated Glomerular Filt Rate > 60; HDL Cholesterol 60 mg/dL (>40); Magnesium 1.9 mg/dL (1.6-2.6); Potassium 3.6 mmol/L (3.3-5.1); Sodium 141 mmol/L (135-145); Total Protein 6.6 g/dL (6.5-8.0); Triglycerides 177 mg/dL (<150)
[2025-06-04 12:33] LABS: Folate 13.1 ng/mL (> or = 4.0); Vitamin B12 564 pg/mL (200-900)
== END 2025-06-04 06:45 | disposition home or self-care (01) ==
LOC: HO.HMGCLDS 06:44
PROVIDERS: PCP Internal Medicine; Visit Provider Physician Assistant Medical
DX: Z00.00 Encounter for general adult medical examination without abnormal findings (principal); Z13.6 Encounter for screening for cardiovascular disorders; Z13.29 Encounter for screening for other suspected endocrine disorder; Z13.1 Encounter for screening for diabetes mellitus; Z13.0 Encounter for screening for diseases of the blood and blood-forming organs and certain disorders involving the immune mechanism
CPT/HCPCS: 36415; 80053; 80061; 80076; 82248; 82306; 82607; 82746; 83036; 83735; 84443; 85025; 86140

== ENCOUNTER 2025-06-21 09:27 | Outpatient (AMB) | payer BC, SELFPAY ==
[2025-06-21 09:31] VITALS: BP 140/67; PULSE 74; RESP 14; TEMP 36.2; O2SAT 97; BMI 26.5
--- NOTE | 2025-06-21 09:31 | A.OFFPC_ITS ---
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 Accompanied by: Self / Same As Patient Allergies No Known Allergies Allergy (Verified 06/21/25 10:28) Medication List - Last Reconciled 06/21/25 by Murray Perdue MD acetaminophen (Tylenol) 650 mg PO Q6H PRN atorvastatin 10 mg PO DAILY escitalopram oxalate 10 mg PO DAILY estradiol 1 tab PO DAILY estradiol 0.01%(0.1mg/gram) vaginal ciggdleh-qlq-wltg-FA-vit K-lut 8 mg iron-400 mcg-50 mcg (Centrum Silver Women) 1 tab PO DAILY sumatriptan succinate sumatriptan succinate 50 mg tablet - take 1 tab at onset of headache; if no relief may repeat 1 tab after at least 2 hrs; max = 4 tabs/24 hr PO Tobacco use date assessed: 03/03/25 Dental Screening Dental Screen Date: 03/03/25 HPI HPI Comments History of Present Illness Details History of Present Illness - The patient is a 65-year-old female wh o presents for an annual physical and reports feeling generally healthy. - Her primary concern is intermittent ri ght-sided low back pain, which she believes is related to her sciatic nerve. - The pain is severe, radiates down her leg, and is particularly exacerbated at night when she lies on her right side. - She reports that a recent bout of this pain has subsided. - Her current medications include a stat in and citalopram taken daily, as well as estradiol and a migraine medication taken as needed. - She confirms that refills have been re quested through a nurse. - Regarding health maintenance, her mamm ogram is due in December of next year. - Her colonoscopy schedule was changed f rom every 10 years to every 5 years due to her brother's diagnosis of colon cancer, and her next screening is due next year. - Her last colonoscopy was negative. - She has received her flu shot. - The patient reports a history of occas ional sinus infections. - She has no history of smoking, alcohol use, or illicit drug use. 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 - Substance Use: She denies any history of smoking, alcohol consumption, or illicit drug use. - Family: She has one adult son and one grandson. - Exercise: The patient exercises five d ays a week, which includes 20 minutes on a walking machine, arm weights, and floor exercises. - Functional Status: She denies any issu es with driving at night. Results - Recent blood work from May was re viewed and showed the following: - Labs: - Complete Blood Count: No anemia, cassi l platelet count. - Comprehensive Metabolic Panel: Kidney and liver functions are good. - Lipid Panel: Cholesterol was all in ra nge. - Thyroid-Stimulating Hormone: Normal. - Screening: - Mammogram: Due December of next year. - Colonoscopy: Due next year. [facility] Medical History Anxiety Right groin pain COVID-19 vaccine series completed PONV (postoperative nausea and vomiting) Seasonal allergies Surgical History S/P anal fissurectomy [place] teeth extracted Hx of cervical discectomy History of tonsillectomy Hx of cholecystectomy Hx of hysterectomy Hx of colonoscopy (~12/11/20) Family History Mother AD (Alzheimer's disease) Father Prostate cancer Brother Diabetes Brother Colon cancer Social History Housing: Condominium Are you a primary pet care associate to a significant other at home: No Do you presently have visiting nurse or other home services: No Alcohol intake: current Alcohol intake frequency: does not drink Patient Tobacco Use Status: Never used Tobacco Second Hand Smoke Exposure: No service: No Current occupational status: employed Cognitive needs: No Hearing needs: No Vision needs: Yes (rx glasses/contacts) Questionnaire PHQ-9 Over the last 2 weeks, how often have you been bothered by any of the following problems? 1. Little interest or pleasure in doing things: not at all 2. Feeling down, depressed, or hopeless: not at all 3. Trouble falling or staying asleep, or sleeping too much: not at all 4. Feeling tired or having little energy: not at all 5. Poor appetite or overeating: not at all 6. Feeling bad about yourself - or that you are a failure or have let yourself or your family down: not at all 7. Trouble concentrating on things, such as reading the newspaper or watching television: not at all 8. Moving or speaking so slowly that other people could have noticed. Or the opposite - being so fidgety or restless that you have been moving around a lot more than usual: not at all 9. Thoughts that you would be better off or of hurting yourself in some way: not at all Total score: 0 Depression Screening Interpretation: Negative Depression Screening Done: Yes 12602 - PHQ-9 Billing: Yes Source: Developed by Drs. Escobar Johnson, Mela Grajeda, Tommy Elias and colleagues, with an educational ger from [employer]. Thrive Questionnaire Date Thrive assessed: 03/03/25 I am a: Patient What is your living situation today?: I have a steady place to live Within the past 12 months, did the food you bought not last and you didn't have the money to get more?: Never true Within the past 12 months, did you worry whether your food would run out before you got money to buy more?: Never true Do you have trouble paying for medicines?: No Do you have trouble getting transportation to medical appointments?: No Do you have trouble paying your heating and electricity bill?: No Do you have trouble taking care of your child, family member or friend?: No Do you have trouble with day-to-day activities such as bathing, preparing meals, shopping, managing finances, etc.?: No Are you currently unemployed and looking for a job?: No Are you interested in more education?: No Please select the resources that you would like help with: None THRIVE Score: 0 AUDIT C Alcohol Use Questionnaire (AUDIT-C) 1. How often do you have a drink containing alcohol?: Never 3. How often do you have six or more drinks on one occasion?: Never Total Score: 0 Score Reviewed/Action Taken: No MEET-7 AMB Questionnaire MEET-7 Date MEET - 7 assessed: 03/03/25 Feeling nervous, anxious, or on edge: 0 = Not at all (patient currently on anxiety medication. ) Not being able to stop or control worryin = Several days Worrying too much about different things: 1 = Several days Trouble relaxin = Not at all Being so restless that it is hard to sit still: 0 = Not at all Becoming easily annoyed or irritable: 0 = Not at all Feeling afraid as if something awful might happen: 0 = Not at all Total MEET-7 score (0-4 normal; 5-9 mild; 10-14 moderate; 15-21 severe): 2 Source: Developed by Drs. Escobar Johnson, Mela Grajeda, Tommy Elias and colleagues, with an educational ger from [employer]. MEET-7 Assessment Billing MEET-7 Assessment Tool: MEET-7 Assessment 23821 Review of Systems Narrative Review of Systems - Constitutional: Reports being healthy. Denies fainting. - Eyes: Reports astigmatism. Denies seeing halos. - Ears, Nose, Throat: Reports good hearing. Denies difficulty hearing on the phone or watching TV. Reports history of sinus infections. - Neurological: Reports symptoms consistent with sciatica. Denies fainting. - Psychiatric: Reports good sleep. - Genitourinary: Denies urinary leakage. - Musculoskeletal: Reports intermittent right-sided low back pain with radiation down the leg and severe right hip pain when lying on her side. Physical exam (Primary Care) Vital Signs: Last Vital Signs Temp 97.2 F 06/21/25 09:31 Pulse 74 06/21/25 09:31 Resp 14 06/21/25 09:31 BP 140/67 H 06/21/25 09:31 Pulse Ox 97 06/21/25 09:31 Oxygen Delivery Method Room Air 06/21/25 09:31 BMI result Body Mass Index 26.5 Tobacco/Smoking Status: Tobacco use Status Tobacco use date assessed 03/03/25 06/21/25 09:33 Patient Tobacco Use Status Never used Tobacco 06/21/25 09:33 PHQ-9: PHQ-9 Score PHQ-9: Total score 0 06/21/25 09:48 Depression Screening Interpretation: Negative Thrive Assessment: Date of Thrive Assessment Date Thrive assessed 03/03/25 06/21/25 09:33 Narrative Physical Exam General: Cooperative and healthy appearing Nutritional Appearance: Well nourished Orientation/consciousness: Patient oriented x3 Limitations: No limitations Head: Normal to inspection General: Appearance normal, both eyes and all related structures Neck: Normal visual inspection Chest: Normal palpation of entire chest wall Respiratory: Normal respiratory effort Neurology: Patient oriented x3 Coding Level of Care Code Est Pt Prev Care >65y(51506) Add On Preventative Visit Only Diagnoses Annual physical exam Z00.00 Additional Codes MEET-7 Assessment Billing - MEET-7 Assessment Tool: MEET-7 Assessment 44524 ([id number]) PHQ-9 - 24083 - PHQ-9 Billing: Yes ([id number]) Assessment & Plan Assessment & Plan (1) Annual physical exam: Code(s): Z00.00 - Encounter for general adult medical examination without abnormal findings Plan Plan - The patient was advised to continue her current medications, and refills were noted as having been placed. - The patient will continue with her health maintenance screenings, including a mammogram next December and a colonoscopy next year. - For intermittent issues such as her right-sided back pain or sinus infections, she was instructed to call the office as needed. - A follow-up visit is scheduled for six months. Discussion Notes I reviewed the patient's blood work from May, noting that her CBC, platelet count, kidney function, liver function, cholesterol, and thyroid levels were all normal. We discussed her health screening schedule, confirming that her next mammogram is due in December of next year and her colonoscopy is due next year, now on a five-year interval due to family history. I advised her that everything appears to be okay and that she should continue her current lifestyle and management. We agreed on a follow-up in six months, and I instructed her to call if any issues, such as her intermittent back pain or sinus infections, arise. Patient Instructions - Continue taking your current medications as prescribed. Your refills have been put in. - Your next mammogram is due in December of next year. - Your next colonoscopy is due next year. - Keep up with your exercise routine. - Please call our office if you have any issues, such as your back pain or a sinus infection. - We will see you back in six months for a follow-up appointment. - Enjoy the holidays and be safe.
--- OUTSIDE RECORDS SUMMARY | 2025-06-21 10:10 | XMS_ITS | Continuity of Care Document ---
Author Organization [place] - [facility],, VEE HUERTAS MD Address [address] [address] Care Team Providers Care Entry Writer Name Role Phone SUJATANAYELI Primary Care Provider Assessment No assessment recorded. Plan of Treatment Reminders Order Date Submit Date Provider Last Modified By Organization Details Last Modified Time Details Appointments None recorded. Lab cytology report, thin prep, smear or scraping, cervical or vaginal 2024 ELSA [facility] (Centralized Electronic Ordering - All Locations), Patient Can Go To The Location Of Their Choice, [address] 18:15:54 hemoglobin , gastrointe stinal, stool 2024 025 [email or web address] 1 In-Office Order, Internal Use Only DO Not Attach Compendium DO Not Attach Compendium, Do Not Delete/merge, [id number] 08:20:16 Referral None recorded. Procedures None recorded. Surgeries None recorded. Imaging MAMMO, screening, digital, bilateral - Breast Aspiration and/or Biopsy if needed 2024 felipe [facility], [address], [address], [place], [address], 14:22:48 Medication Orders estradiol 1 mg tablet 2024 025 [facility], [facility], [place], [address], 08:20:18 Patient TargetsNo targets recorded. Patient Instructions Encounter Date Encounter Id Patient Instructions Last Modified By Organization Details Last Modified Time 04/11/2025 [id number] learning about healthy weight renu Not available [...] OR MALIG PRECIOUS . Not Available [facility] [address] [place], [address], 04/13/2025 18:15:54 04/11/2004/13/2025 IGP, RFX APTIM A HPV ASCU specimen adequacy: Juan Jose durbin Satis facto ry for evalu ation . Not Available [facility] [address] [place], [address], 04/13/2025 18:15:54 04/11/2004/13/2025 IGP, RFX APTIM A HPV ASCU clinician provided ICD10: Juan Jose durbin Z01.4 19 Not Available [facility] [address] [place], [address], 04/13/2025 18:15:54 04/11/2004/13/2025 IGP, RFX APTIM A HPV ASCU performed by: Juan Jose Urrutia , Cytol ogist (ASCP ) Not Available [facility] [address] [place], [address], 04/13/2025 18:15:54 04/11/2004/13/2025 IGP, RFX APTIM A HPV ASCU . . Not Available [facility] [address] [place], [address], 04/13/2025 18:15:54 04/11/2004/13/2025 IGP, RFX APTIM A [...] ts do occur . Not Available [facility] [address] [facility], [place], [address], 04/13/2025 18:15:54 04/11/2004/13/2025 IGP, RFX APTIM A HPV ASCU test methodology: Commen t This liqui d based ThinP rep(R ) pap test was scree brandy with the use of an image guide sydnee reyes. Not Available [facility] [address] [facility], [place], [address], 04/13/2025 18:15:54 04/11/2004/13/2025 IGP, RFX APTIM A HPV ASCU . Commen t The HPV DNA refle x crite fanny were not met with this speci men resul t there fore, no HPV testi ng was perfo rmed. Not Available [facility] [address] [facility], [place], [address], 04/13/2025 18:15:54 04/11/2004/11/2025 hemog lobin , gastr ointe james l, stool Occult Blood negati ve Not Available In-Office Order Internal Use Only DO Not Attach Compendium DO Not Attach Compendium, Do Not Delete/merge, [id number] 04/11/2025 08:06:10 Result Notes None recorded. Problems Name Problem SNOMED Code Status Onset Date Resolution Date Notes Provider Name and Address Organization Details Recorded Time Menopause present 024308057 Active Vee Huertas MD [address], [place], [address], [place] [facility], 6 16:13:38 Endometri osis Active history of, had hysterect julio cesar due to this Vee Huertas MD [address], [place], [address], [place] [facility], 6 16:13:38 Breast lump 14281994 Active Vee Huertas MD [address], [place], [address], [place] [facility], 6 16:13:38 Cytologic finding 183501920 Active Vee Huertas MD [address], [place], [address], [place] [facility], 6 16:17:41 Acute lower urinary tract infection 395546726 Active Vee Huertas MD [address], [place], [address], [place] [facility], 6 16:13:38 Abnormal vaginal Papanicol aou smear 306542660 Active Vee Huertas MD [address], [place], [address], [place] [facility], 6 16:13:38 History of vaginal intraepit helial neoplasia 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 Procedures Surgical History Date Name Laterality Status Provider Name and Address Organization Details Recorded Time 01/23/20 25 Most Recent Mammogram completed Marlene Gaines [place] - [facility], 03/28/2025 11:08:07 02/17/20 20 Colposcopy completed Vee Huertas MD [address], [place], [address], [place] [facility], 02/17/2020 16:03:15 04/02/20 18 Colposcopy completed Vee Huertas MD [address], [place], [address], [place] [facility], 04/02/2018 16:28:23 11/19/19 17 Colposcopy completed Vee Huertas MD [address], [place], [address], [place] [facility], 11/18/2016 15:43:09 08/19/19 17 Colposcopy completed Vee Huertas MD [address], [place], [address], [place] [facility], 08/20/2016 09:46:04 08/17/19 16 Colposcopy completed Vee Huertas MD [address], [place], [address], [place] [facility], 08/17/2015 16:18:43 02/18/20 15 Colposcopy completed Vee Huertas MD [address], [place], [address], [place] [facility], 02/17/2015 14:30:28 06/30/19 15 Other completed Marlene Gaines [place] - [facility], 02/06/2015 15:40:43 08/29/19 14 Most Recent Bone Density completed Celia Zabala [facility], 02/08/2016 15:32:27 06/30/19 07 Other completed Marlene [facility] in [facility], 01/27/2014 09:02:17 06/30/19 04 Other completed Celia Valdez [place] [facility], 02/03/2014 15:59:32 06/30/18 94 Total Abdominal Hysterectomy completed Marlene [place] in [facility], 04/11/2025 08:05:45 06/30/18 84 Cholecystectomy completed Marlene [place] in [facility], 01/27/2014 09:02:17 Imaging Results None recorded. Procedure [...] [degF] 85 /min 158.75 cm 26.3 kg/m2 67614.4 9 g 144/80 mm[Hg] Marlene Gaines [place] [facility], 5 08:02:17 Social History Question Answer Notes LastModified by Organizat ion Details LastModified Time Tobacco Smoking Status Never Smoker Not Available [facility] 05/02/2020 03:19:40 How Many Years Have You Consumed Alcohol? 40 Information not available 03/19/2021 What Is Your Level Of Caffeine Consumption? Occasional [id number] Information not available 05/02/2020 In The 14 [...] Type Of Diet Are You Following? REGULAR [id number] Information not available 05/02/2020 Which Illicit Or Recreational Drugs Have You Used? None [id number] Information not available 05/02/2020 Do You Reside In Or Have You Traveled To An Area Where Ebola Virus Transmission Is Active? No [id number] Information not available 05/02/2020 Education 12 Information no t available 02/03/2014 What Is The Highest Grade Or Level Of School You Have Completed Or The Highest Degree You Have Received? [id number] Information not available 03/19/2021 Who Is Your [...] You Sexually Active? No Been 2 Yrs. [id number] Information not available 05/02/2020 How Much Tobacco Do You Smoke? No [id number] Information not available 05/02/2020 General Stress Level Low Working On It..with Med Information not available 04/08/2024 How Many Years Have You Smoked Tobacco? 0 [id number] Information not available 05/02/2020 Have You Recently [...] is your level of alcohol consumption? Occasional [id number] Information not available 05/02/2020 Do you or have you ever used smokeless tobacco? Never used smokeless tobacco [id number] Information not available 05/02/2020 Are you currently employed? Yes Information not available 10/25/2021 What is your occupation? [employer] Information not available 01/27/2014 Do you or have you ever used e-cigarettes or vape? Never used electronic cigarettes [id number] Information not available 05/02/2020 What is your exercise level? Heavy [id number] Information not available 05/02/2020 Mental Status Question Answer Note LastModified by Organization D etails LastModified Time Do you feel stressed (tense, restless, nervous, or anxious, or unable to sleep at night)? [id number] Information not available 03/19/2021 Family History Relationship [...] Marlene Meczywor null, [place] - [facility], 09/07/2020 15:14:44 COVID-19, mRNA, LNP-S, PF, 100 mcg/0.5mL dose or 50 mcg/0.25mL dose 1 completed Marlene Meczywor null, [place] - [facility], 03/19/2021 15:18:20 COVID-19, mRNA, LNP-S, PF, 100 mcg/0.5mL dose or 50 mcg/0.25mL dose 1 completed Marlene Meczywor null, [place] [facility], 07/02/2022 09:54:58 zoster recombinant 1 completed Marlene Meczywor null, [place] [facility], 07/02/2022 09:54:58 Influenza, recombinant, quadrivalent, PF 1 completed Marlene Meczywor null, [place] - [facility], 07/02/2022 09:54:58 COVID-19, mRNA, LNP-S, PF, 100 mcg/0.5mL dose or 50 mcg/0.25mL dose 1 completed Marlene Meczywor null, [place] [facility], 07/02/2022 09:54:58 COVID-19, mRNA, LNP-S, PF, 100 mcg/0.5mL dose or 50 mcg/0.25mL dose 1 completed Marlene Meczywor null, [place] [facility], 07/02/2022 09:54:58 COVID-19, mRNA, LNP-S, PF, 100 mcg/0.5mL dose or 50 mcg/0.25mL dose 2 completed Marlene Meczywor null, [place] [facility], 07/02/2022 09:54:58 zoster recombinant 1 completed Marlene Meczywor null, [place] [facility], 07/02/2022 09:54:58 Influenza, MDCK, quadrivalent, PF 2 completed Marlene Meczywor null, [place] [facility], 04/08/2024 15:17:13 Influenza, adjuvanted, trivalent, PF 4 completed Not Available [facility] 04/11/2025 07:56:17 Pneumococcal conjugate PCV20, polysaccharide CEH181 conjugate, adjuvant, PF 4 completed Not Available [facility] 04/11/2025 07:56:17 Influenza, split virus, quadrivalent, PF 3 completed Not Available [facility] 04/11/2025 07:56:17 Influenza, adjuvanted, trivalent, PF 5 completed Not Available [facility] 04/11/2025 07:56:17 Past Encounters Encounter ID Performer Location Encounter Start Date Encounter Closed Date Diagnosis/Indication Diagnosis SNOMED-CT Code Diagnosis ICD10 Code Diagnosis IMO Codes Diagnosis Note [id number] MD VEE Long MD [address] [place] [address] [address] [place] [address] 04/11/2025 07:55:04 04/11/2025 14:22:48 Menopausal syndrome 138720023 N95.1 Specialize d medical examination 30718052 Z01.419 Screening for malignant neoplasm of rectum 461875145 Z12.12 Screening mammography 24 862282 Z12.31 History of vaginal intraepithelial neoplasia 0148599771 57805 Z87.411 Health Concerns Section Related Observation LastModified by Organization Detai ls LastModified Time None Recorded Concern Status LastModified by Organization Details LastModified Time None Recorded Payers Encounter Date Sequence Insurance Name Policy Number Policy Trejo Covered Member ID Trejo Member ID Guarantor Name 04/11/2025 1 KENNETH (PPO) [id number] Olivia Hatfield [id number] Olivia Hatfield Notes Date Note Type [...] he had Colaris testing. Vee Huertas MD [address] [place] [address],[address], [place] [place] [address], [place] [facility], 04/11/2025 08:21:22 OBGyn Episode No OBEpisode recorded.
--- OUTSIDE RECORDS SUMMARY | 2025-06-21 10:11 | XMS_ITS | Data Portability ---
Author Organization [place] - [facility],, VEE HUERTAS MD Address [address] [address] Care Team Providers Care Maintenance Representative Name Role Phone SUJATA, KARTIK Primary Care Provider Assessment No assessment recorded. Plan of Treatment Reminders Order Date Submit Date Provider Last Modified By Organization Details Last Modified Time Details Appointments None recorded. Lab cytology report, thin prep, smear or scraping, cervical or vaginal 2024 025 ELSA [facility] (Centralized Electronic Ordering - All Locations), Patient Can Go To The Location Of Their Choice, [id number] 5 18:15:54 hemoglobin , gastrointe stinal, stool 2024 025 [email or web address] 1 In-Office Order, Internal Use Only DO Not Attach Compendium DO Not Attach Compendium, Do Not Delete/merge, [id number] 08:20:16 wet mount, vaginal 2023 024 [email or web address] 1 In-Office Order, Internal Use Only DO Not Attach Compendium DO Not Attach Compendium, Do Not Delete/merge, [id number] 10:21:30 cytology report, thin prep, smear or scraping, cervical or vaginal 2023 024 ELSA [facility] (Centralized Electronic Ordering - All Locations), Patient Can Go To The Location Of Their Choice, [id number] 4 18:05:48 hemoglobin , gastrointe stinal, stool 2023 024 [email or web address] 1 In-Office Order, Internal Use Only DO Not Attach Compendium DO Not Attach Compendium, Do Not Delete/merge, [id number] 4 15:43:40 pap test, thinprep, cervical 2022 023 [email or web address] [facility] (Centralized Electronic Ordering - All Locations), Patient Can Go To The Location Of Their Choice, [id number] 3 07:47:53 fecal occult blood, stool 2022 023 [email or web address] 1 In-Office Order, Internal Use Only DO Not Attach Compendium DO Not Attach Compendium, Do Not Delete/merge, [id number] 3 08:33:54 Referral None recorded. Procedures None recorded. Surgeries None recorded. Imaging MAMMO, screening, digital, bilateral - Breast Aspiration and/or Biopsy if needed 2024 025 [facility] Orders, [address], [address], [place], [address], 5 14:22:48 MAMMO, screening, digital, bilateral - Breast Aspiration and/or Biopsy if needed 2023 024 [facility] Orders, [address], [address], [place], [address], 5 21:25:50 MAMMO, screening, digital, bilateral - Breast Aspiration and/or Biopsy if needed 2022 023 [facility] Orders, [address], [address], [place], [address], 4 17:02:58 US, breast, unilateral , w/ axilla - left axillae, 15 cm from nipple, at the 2 o'clock, patient has a 4 mm, rubbery, painful density that has been painful for 4 weeks 2022 023 [email or web address], [address], [address], [place], [address], 3 07:45:53 MAMMO, diagnostic , digital, unilateral - left axillae, 15 cm from nipple, at the 2 o'clock, patient has a 4 mm, rubbery, painful density that has been painful for 4 weeks 2022 023 [facility] Orders, [address], [address], [place], [address], 3 14:33:22 Medication Orders estradiol 1 mg tablet 2024 025 [facility] [place], [address], 5 08:20:18 metronidaz ole 0.75 % (37.5 mg/5 gram) vaginal gel 2023 025 [id number], [address] [place], [address], 5 08:03:24 fluconazol e 150 mg tablet 2023 025 [id number] [address] [place], [address], 5 08:03:16 estradiol [address] [facility] [place], [address], 4 15:43:42 estradiol 0.01% (0.1 mg/gram) vaginal cream 2022 023 [facility] [place], [address], 3 08:35:00 estradiol 1 mg tablet 2022 023 [facility] [place], [address], 08:34:59 Patient TargetsNo targets recorded. Patient Instructions Encounter Date Encounter Id Patient Instructions Last Modified By Organization Details Last Modified Time 07/02/2022 [id number] She is here because she has had [...] offered that she can be referred to [facility], she understands and will call if pain persists even if testing is negative. Not available 07/02/2022 13:02:06 04/07/2023 [id number] learning about healthy weight Not available 04/07/2023 08:33:54 She is here for annual, doing well on vaginal and oral ERT, elects to continue. 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 Not available 04/07/2023 08:34:35 04/08/2024 [id number] learning about healthy weight Not available 04/08/2024 15:43:40 She is here for annual, doing well on vaginal and oral ERT, elects to continue. 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 Not available 04/08/2024 15:45:32 04/16/2024 [id number] bacterial vaginosis: care instructions Not available 04/16/2024 [...] the pH. Not available 04/16/2024 10:33:02 04/11/2025 [id number] learning about healthy weight Not available 04/11/2025 [...] Tissu e Sourc e: 1: THINP REP AUTO DAMAGE TRAINEE PAP TEST, CERVI KEITH: Final Diagn osis: [...] cabral or soni regan [facility]fo [facility] Refer ence Labor atory depar tment of Cytol ogy, [address] [place] Cl[place] Histo ry (othe r): Z01.4 19, ROUTI NE SCREE N, LPS 03/20 NEG Phone #: [phone], On-Ca ll Patho logis t: [id number] Not Available [facility] (Centralized Electronic Ordering - All Locations) Patient Can Go To The Location Of Their Choice, [id number] 04/14/2023 09:46:32 04/07/20 23 04/07/2023 fecal occul t blood , stool Occult Blood negati ve Not Available In-Office Order Internal Use Only DO Not Attach Compendium DO Not Attach Compendium, Do Not Delete/merge, [id number] 04/07/2023 08:01:50 04/08/20 24 04/14/2024 IGP, RFX [...] SONDRA IS PRESE NT. Not Available [facility] ([facility]) [address] [facility], [place], [address], 04/14/2024 18:05:47 04/08/20 24 04/14/2024 IGP, RFX APTIM A HPV ASCU specimen adequacy: Commen t Satis facto ry for evalu ation . Not Available [facility] ([facility]) [address] [facility], [place], [address], 04/14/2024 18:05:47 04/08/2004/14/2024 IGP, RFX APTIM A HPV ASCU clinician provided ICD10: Juan Jose durbin Z01.4 19 Not Available [facility] ([facility]) [address] [place], [address], 04/14/2024 18:05:47 04/08/2004/14/2024 IGP, RFX APTIM A HPV ASCU performed by: Luis Eduardo Hurd (ASCP ) Not Available [facility] ([facility]) [address] [place], [address], 04/14/2024 18:05:47 04/08/2004/14/2024 IGP, RFX APTIM A HPV ASCU . . Not Available [facility] ([facility]) [address] [facility], [place], [address], 04/14/2024 18:05:47 04/08/2004/14/2024 IGP, RFX APTIM A [...] ts do occur . Not Available [facility] ([facility]) [address] [place], [address], 04/14/2024 18:05:47 04/08/2004/14/2024 IGP, RFX APTIM A HPV ASCU test methodology: Juan Jose durbin This liqui d based ThinP rep(R ) pap test was scree brandy with the use of an image guide d systvernell m. Not Available [facility] ([facility]) [address] [place], [address], 04/14/2024 18:05:47 04/08/2004/14/2024 IGP, RFX APTIM A HPV ASCU . Commen t The HPV DNA refle x crite fanny were not met with this speci men resul t there fore, no HPV testi ng was perfo rmed. Not Available [facility] ([facility]) [address] [facility], [place], [address], 04/14/2024 18:05:47 04/08/20 24 04/08/2024 hemog lobin [...] OR KENDRA LANG . Not Available [facility] ([facility]) [address] [place], [address], 04/13/2025 18:15:54 04/11/2004/13/2025 IGP, RFX APTIM A HPV ASCU specimen adequacy: Juan Jose durbin Satis facto ry for evalu ation . Not Available [facility] ([facility]) [address] [place], [address], 04/13/2025 18:15:54 04/11/2004/13/2025 IGP, RFX APTIM A HPV ASCU clinician provided ICD10: Juan Jose durbin Z01.4 19 Not Available [facility] ([facility]) [address] [place], [address], 04/13/2025 18:15:54 04/11/2004/13/2025 IGP, RFX APTIM A HPV ASCU performed by: Juan Jose Urrutia Cytol ogmilad (ASCP ) Not Available [facility] ([facility]) [address] [place], [address], 04/13/2025 18:15:54 04/11/2004/13/2025 IGP, RFX APTIM A HPV ASCU . . Not Available [facility] ([facility]) [address] [place], [address], 04/13/2025 18:15:54 04/11/2004/13/2025 IGP, RFX APTIM A [...] ts do occur . Not Available [facility] ([facility]) [address] [facility], [place], [address], 04/13/2025 18:15:54 04/11/2004/13/2025 IGP, RFX APTIM A HPV ASCU test methodology: Commen t This liqui d based ThinP rep(R ) pap test was chance nava with the use of an image guide sydnee reyes. Not Available [facility] ([facility]) [address] [facility], [place], [address], 04/13/2025 18:15:54 04/11/2004/13/2025 IGP, RFX APTIM A HPV ASCU . Commen t The HPV DNA refle x crite fanny were not met with this speci men resul t there fore, no HPV testi ng was perfo rmed. Not Available [facility] ([facility]) [address] [facility], [place], [address], 04/13/2025 18:15:54 04/11/2004/11/2025 hemog lobin , gastr ointe james l, stool Occult Blood negati ve Not Available In-Office Order Internal Use Only DO Not Attach Compendium DO Not Attach Compendium, Do Not Delete/merge, [id number] 04/11/2025 08:06:10 07/05/1907/05/2022 MAMMO , diagn ostic , digit al, unila teral No observ ation record ed. [facility] [address], [place], [address], 07/05/2022 14:47:47 01/21/2001/18/2023 MAMMO , chance blackmang, digit al, bilat eral No observ ation record ed. [facility] [place] [address], [place], [address], 01/21/2023 10:43:43 01/20/20 24 01/20/2024 MAMMO , scree thomas, digit al, bilat eral No observ ation record ed. [facility] [address] [place], [address], 01/21/2024 08:02:56 01/23/2001/22/2025 MAMMO , scree thomas, digit al, bilat eral No observ ation record ed. [facility] [address] [place], [address], 01/23/2025 12:11:46 Result Notes None recorded. Problems Name Problem SNOMED Code Status Onset Date Resolution Date Notes Provider Name and Address Organization Details Recorded Time Menopause present 323241737 Active Vee Huertas MD [address], [place], [address], [place] [facility], 6 16:13:38 Endometri osis Active history of, had hysterect julio cesar due to this Vee Huertas MD [address], [place], [address], [place] [facility], 6 16:13:38 Breast lump 01364912 Active Vee Huertas MD [address], [place], [address], [place] [facility], 6 16:13:38 Cytologic finding 576340311 Active Vee Huertas MD [address], [place], [address], [place] [facility], 6 16:17:41 Acute lower urinary tract infection 282386039 Active Vee Huertas MD [address], [place], [address], [place] [facility], 6 16:13:38 Abnormal vaginal Papanicol aou smear 045550131 Active Vee Huertas MD [address], [place], [address], [place] [facility], 6 16:13:38 History of vaginal intraepit helial neoplasia 693621123210 104 Active 2016 note from colpo 03/2018: [...] [address], [place], [address], [place] [facility], 9 16:12:10 Atrophic vaginitis 16307101 Active 2021 Vee Huertas MD [address], [place], [address], [place] [facility], 2 15:39:27 Problem Notes None recorded. Procedures Surgical History Date Name Laterality Status Provider Name and Address Organization Details Recorded Time 01/23/20 25 Most Recent Mammogram completed Marlene Zabala [facility], 03/28/2025 11:08:07 02/17/20 20 Colposcopy completed MD [address], [place], [address], [place] [facility], 02/17/2020 16:03:15 04/02/20 18 Colposcopy completed MD [address], [place], [address], [place] [facility], 04/02/2018 16:28:23 11/19/19 17 Colposcopy completed Vee Huertas MD [address], [place], [address], [place] [facility], 11/18/2016 15:43:09 08/19/19 17 Colposcopy completed Vee Huertas MD [address], [place], [address], [place] [facility], 08/20/2016 09:46:04 08/17/19 16 Colposcopy completed Vee Huertas MD [address], [place], [address], [place] [facility], 08/17/2015 16:18:43 02/18/20 15 Colposcopy completed Vee Huertas MD [address], [place], [address], [place] [facility], 02/17/2015 14:30:28 06/30/19 15 Other completed Marlene Gaines [place] - [facility], 02/06/2015 15:40:43 08/29/19 14 Most Recent Bone Density completed Celia Valdez [place] - [facility], 02/08/2016 15:32:27 06/30/19 07 Other completed Marlene Gaines [place] - [facility], 01/27/2014 09:02:17 06/30/19 04 Other completed Celia Valdez [place] - [facility], 02/03/2014 15:59:32 06/30/18 94 Total Abdominal Hysterectomy completed Marlene Gaines [place] - [facility], 04/11/2025 08:05:45 06/30/18 84 Cholecystectomy completed Marlene Gaines [place] - [facility], 01/27/2014 09:02:17 Imaging Results None [...] Updated DateTime 3 157.48 cm 25.5 kg/m2 93613.0 6 g 103 /min 97.5 [degF] 155/98 mm[Hg] Marlene [facility], 3 09:53:55 Date Recorded Body height Body mass index (BMI) Body weight Heart rate Systolic And Diastolic Provider Name and Address Organization Details Last Updated DateTime 04/07/2023 157.48 cm 24.3 kg/m2 16151.79 g 78 /min 133/72 mm[Hg] Юлия [facility], 04/07/2023 08:04:26 Date Recorded Body weight Body mass index (BMI) Body height Heart rate Systolic And Diastolic Provider Name and Address Organization Details Last Updated DateTime 04/08/2024 06118.34 g 25 kg/m2 158.75 cm 70 /min 139/83 mm[Hg] Marlene [facility] in [facility], 04/08/2024 15:16:36 Date Recorded Body temperature Heart rate Body height Body mass index (BMI) Body weight Systolic And Diastolic Provider Name and Address Organization Details Last Updated DateTime 5 98.2 [degF] 85 /min 158.75 cm 26.3 kg/m2 14661.4 9 g 144/80 mm[Hg] Marlene [facility] in [facility], 5 08:02:17 Date Recorded Body height Body mass index (BMI) Body weight Body temperature Heart rate Systolic And Diastolic Provider Name and Address Organization Details Last Updated DateTime 4 158.75 cm 25 kg/m2 94329.3 4 g 98.1 [degF] 82 /min 138/66 mm[Hg] Marlene [facility] in [facility], 4 09:53:54 Social History Question Answer Notes LastModified by Organizat ion Details LastModified Time Tobacco Smoking Status Never Smoker Not Available [employer] 05/02/2020 03:19:40 How Many Years Have You Consumed Alcohol? 40 Information not available 03/19/2021 What Is Your Level Of Caffeine Consumption? Occasional [id number] Information not available 05/02/2020 In The 14 [...] Type Of Diet Are You Following? REGULAR [id number] Information not available 05/02/2020 Which Illicit Or Recreational Drugs Have You Used? None [id number] Information not available 05/02/2020 Do You Reside In Or Have You Traveled To An Area Where Ebola Virus Transmission Is Active? No [id number] Information not available 05/02/2020 Education 12 Information no t available 02/03/2014 What Is The Highest Grade Or Level Of School You Have Completed Or The Highest Degree You Have Received? [id number] Information not available 03/19/2021 Who Is Your [...] You Sexually Active? No Been 2 Yrs. [id number] Information not available 05/02/2020 How Much Tobacco Do You Smoke? No [id number] Information not available 05/02/2020 General Stress Level Low Working On It..with Med Information not available 04/08/2024 How Many Years Have You Smoked Tobacco? 0 [id number] Information not available 05/02/2020 Have You Recently [...] is your level of alcohol consumption? Occasional [id number] Information not available 05/02/2020 Do you or have you ever used smokeless tobacco? Never used smokeless tobacco [id number] Information not available 05/02/2020 Are you currently employed? Yes Information not available 10/25/2021 What is your occupation? [employer] Information not available 01/27/2014 Do you or have you ever used e-cigarettes or vape? Never used electronic cigarettes [id number] Information not available 05/02/2020 What is your exercise level? Heavy [id number] Information not available 05/02/2020 Mental Status Question Answer Note LastModified by Organization D etails LastModified Time Do you feel stressed (tense, restless, nervous, or anxious, or unable to sleep at night)? [id number] Information not available 03/19/2021 Family History Relationship [...] Marlene Meczywor yun [place] Sagrario [facility], 09/07/2020 15:14:44 COVID-19, mRNA, LNP-S, PF, 100 mcg/0.5mL dose or 50 mcg/0.25mL dose 1 completed Marlene Meczywor null [place] - [facility], 03/19/2021 15:18:20 COVID-19, mRNA, LNP-S, PF, 100 mcg/0.5mL dose or 50 mcg/0.25mL dose 1 completed Marlene Meczywor null [place] - [facility], 07/02/2022 09:54:58 zoster recombinant 1 completed Marlene Meczywor null [place] [facility], 07/02/2022 09:54:58 Influenza, recombinant, quadrivalent, PF 1 completed Marlene Meczywor null [place] - [facility], 07/02/2022 09:54:58 COVID-19, mRNA, LNP-S, PF, 100 mcg/0.5mL dose or 50 mcg/0.25mL dose 1 completed Marlene Meczywor null, [place] - [facility], 07/02/2022 09:54:58 COVID-19, mRNA, LNP-S, PF, 100 mcg/0.5mL dose or 50 mcg/0.25mL dose 1 completed Marlene Meczywor null, [place] - [facility], 07/02/2022 09:54:58 COVID-19, mRNA, LNP-S, PF, 100 mcg/0.5mL dose or 50 mcg/0.25mL dose 2 completed Marlene Meczywor null, [place] - [facility], 07/02/2022 09:54:58 zoster recombinant 1 completed Marlene Meczywor null, [place] - [facility], 07/02/2022 09:54:58 Influenza, MDCK, quadrivalent, PF 2 completed Marlene Meczywor null, [place] [facility], 04/08/2024 15:17:13 Influenza, adjuvanted, trivalent, PF 4 completed Not Available [facility] 04/11/2025 07:56:17 Pneumococcal conjugate PCV20, polysaccharide [id number] conjugate, adjuvant, PF 4 completed Not Available [facility] 04/11/2025 07:56:17 Influenza, split virus, quadrivalent, PF 3 completed Not Available [facility] 04/11/2025 07:56:17 Influenza, adjuvanted, trivalent, PF 5 completed Not Available [facility] 04/11/2025 07:56:17 Past Encounters Encounter ID Performer Location Encounter Start Date Encounter Closed Date Diagnosis/Indication Diagnosis SNOMED-CT Code Diagnosis ICD10 Code Diagnosis IMO Codes Diagnosis Note [id number] MD VEE Long MD [address] [facility] [place] [address] 02/03/2014 15:26:10 02/04/2014 09:38:06 Specialized medical examination 59135558 Screening for malignant neoplasm of rectum 200358753 Screening mammography 36289484 Menopause present [id number] MD VEE Long MD [address] [place] [address],[place] [address] 02/24/2014 14:50:03 02/24/2014 16:10:03 Breast lump 12218121 [id number] MD VEE Long MD [address] [place] [address],[place] [address] 02/06/2015 15:10:51 02/06/2015 16:23:01 Specialized medical examination 44408743 Screening for malignant neoplasm of rectum 478673183 Screening mammography 01999376 Menopause present [id number] [id number] MD VEE Long MD [address] [place] [address],[place] [address] 02/17/2015 12:50:49 02/17/2015 15:16:02 Cytologic finding [id number] MD VEE Long MD [address] [place] [address],[place] [address] 02/28/2015 09:12:07 02/28/2015 11:28:31 Acute lower urinary tract infection 454571737 [id number] MD VEE Long MD [address] [place] [address],[place] [address] 06/01/2015 09:24:34 06/01/2015 13:56:10 Abnormal vaginal Papanicolaou smear 337794150 R87.629 [id number] MD VEE Long MD [address] [place] [address],[place] [address] 08/17/2015 15:13:05 08/17/2015 16:26:08 Cytologic finding [id number] R87.612 [id number] MD VEE Long MD [address] [place] [address],[place] [address] 02/08/2016 15:10:32 02/09/2016 07:57:21 Screening for malignant neoplasm of rectum 331831443 Z12.12 Screening mammography 24 350192 Z12.31 Specialize d medical examination 60184185 Z01.419 Menopause present 047428 006 N95.1 [id number] MD VEE Long MD [address] [place] [address], [place] [address] 05/14/2016 15:10:06 05/15/2016 08:30:33 Atypical squamous cells of undetermined significance on vaginal Papanicolaou smear 024364454 R87.620 Candidal vulvovaginitis 99970926 B37.3 [id number] MD VEE Long MD [address] [place] [address], [place] [address] 08/19/2016 15:09:55 08/20/2016 09:48:34 Cytologic finding [id number] R87.612 [id number] MD VEE Long MD [address] [place] [address],[facility] [address] 08/30/2016 09:35:23 08/30/2016 11:42:38 Acute lower urinary tract infection 266108739 R30.0 [id number] MD VEE Long MD [address] [place] [address], [place] [address] 11/18/2016 15:11:39 11/18/2016 15:58:32 Cytologic finding [id number] R87.612 [id number] MD VEE Long MD [address] [place] [address], [place] [address] 02/28/2017 10:52:17 02/28/2017 13:55:26 Specialized medical examination 71497022 Z01.419 Screening for malignant neoplasm of rectum 768915799 Z12.12 Screening mammography 24 196182 Z12.31 Menopause present 511301 006 N95.1 [id number] MD VEE Long MD [address] [place] [address], [place] [address] 03/12/2018 15:09:47 03/13/2018 08:04:43 Menopause present 029729022 N95.1 Specialize d medical examination 91383407 Z01.419 Screening for malignant neoplasm of rectum 741118464 Z12.12 Screening mammography 24 413905 Z12.31 [id number] MD VEE Long MD [address] [place] [address] [place] [address] 04/02/2018 14:32:55 04/03/2018 10:04:47 Cytologic finding [id number] R87.612 [id number] MD VEE Long MD [address] [place] [address] [place] [address] 03/16/2019 15:08:47 03/16/2019 16:18:05 Menopause present 515863927 N95.1 Specialize d medical examination 06291395 Z01.419 Screening for malignant neoplasm of rectum 539708896 Z12.12 Screening mammography 24 871059 Z12.31 Menopausal syndrome 1237 96106 N95.1 Vaginal intraepithelial neoplasia grade 1 849517794 N89.0 [id number] MD VEE Long MD [address] [place] [address] [place] [address] 05/10/2019 10:06:15 05/10/2019 13:04:29 Osteopenia [id number] M85.852 [id number] MD VEE Long MD [address] [place] [address] [place] [address] 09/13/2019 15:10:22 09/14/2019 14:30:24 Atypical squamous cells of undetermined significance on cervical Papanicolaou smear [id number] R87.610 [id number] MD VEE Long MD [address] [place] [address] [place] [address] 11/26/2019 15:10:06 11/26/2019 15:43:36 Atypical squamous cells of undetermined significance on vaginal Papanicolaou smear 464693222 R87.620 [id number] MD VEE Long MD [address] [place] [address] [place] [address] 02/17/2020 15:10:59 02/18/2020 08:07:33 Cytologic finding 092825025 R87.612 [id number] MD VEE Long MD [address] [place], [place] [address]H[place]ER [place]ER-[address] 5 03/16/2020 15:08:42 03/16/2020 15:46:22 Specialized medical examination 69030644 Z01.419 Screening for malignant neoplasm of rectum 929404249 Z12.12 Screening mammography 24 042826 Z12.31 Menopause present 275886 006 N95.1 [id number] MD VEE Long MD [address] [place] [address] [place] JESUS-306 5 09/07/2020 15:10:14 09/07/2020 15:27:52 Atypical squamous cells of undetermined significance on vaginal Papanicolaou smear 650585763 R87.620 [id number] MD VEE Long MD [address] [place], [place] [address]HOM[place]-[address] 5 11/03/2020 08:21:18 11/03/2020 10:47:20 Atypical squamous cells of undetermined significance on cervical Papanicolaou smear 934799924 R87.610 [id number] MD VEE Long MD [address] [place], [place] [address] [address] 11/20/2020 14:50:45 01/02/2021 14:17:29 Vaginal intraepithelial neoplasia grade 1 [id number] N89.0 Atrophic vaginitis 05369 000 N95.2 [id number] MD VEE Long MD [address] [place], [place] [address]HOM[place]ARK[place]-[address] 5 03/19/2021 15:04:53 03/19/2021 16:00:32 Specialized medical examination 90994224 Z01.419 Screening for malignant neoplasm of rectum 788797548 Z12.12 Screening mammography 24 388536 Z12.31 Abnormal v aginal Papanicolaou smear 040254684 R87.629 History of vaginal intraepithelial neoplasia 2104423865 88660 Z87.411 [id number] MD VEE Long MD [address] [place] [address] [place] [address] 10/25/2021 15:02:00 10/25/2021 15:48:43 Atypical squamous cells of undetermined significance on cervical Papanicolaou smear 618327909 R87.610 [id number] MD VEE Long MD [address] [place] [address] [place] [address] 03/19/2022 15:01:12 03/19/2022 15:55:44 Specialized medical examination 79387830 Z01.419 Screening for malignant neoplasm of rectum 359188661 Z12.12 Screening mammography 24 526250 Z12.31 History of vaginal intraepithelial neoplasia 6618234224 24486 Z87.411 Menopausal syndrome 1237 82258 N95.1 Atrophic vaginitis 44071 000 N95.2 [id number] MD VEE Long MD [address] [place] [address] [place] [address] 07/02/2022 09:47:33 07/02/2022 13:05:41 Lump of axillary tail of left breast 3341930500 34559 N63.32 [id number] MD VEE Long MD [address] [place] [address] [place] [address] 04/07/2023 08:00:51 04/07/2023 10:56:50 Specialized medical examination 57423928 Z01.419 Screening for malignant neoplasm of rectum 871474340 Z12.12 Screening mammography 24 283885 Z12.31 Menopausal syndrome 1237 82090 N95.1 Atrophic vaginitis 64031 000 N95.2 [id number] MD VEE Long MD [address] [place] [address] [place] [address] 04/08/2024 15:03:27 04/08/2024 15:56:26 Menopausal syndrome 315589794 N95.1 Specialize d medical examination 97077567 Z01.419 Screening for malignant neoplasm of rectum 306109595 Z12.12 Screening mammography 24 132940 Z12.31 [id number] MD VEE Long MD [address] [facility] [address] [place] [address] 04/16/2024 09:47:42 04/16/2024 10:36:51 Candidal vulvovaginitis 52807817 B37.31 Vulvitis 60787076 N76.2 B96.89 [id number] MD VEE Long MD [address] [facility] [place] [address] 04/11/2025 07:55:04 04/11/2025 14:22:48 Menopausal syndrome 094544390 N95.1 Specialize d medical examination 45933041 Z01.419 Screening for malignant neoplasm of rectum 006497387 Z12.12 Screening mammography 24 595852 Z12.31 History of vaginal intraepithelial neoplasia 4537195164 66857 Z87.411 Health Concerns Section Related Observation LastModified by Organization Detai ls LastModified Time None Recorded Concern Status LastModified by Organization Details LastModified Time None Recorded Advance Directives Directive None Recorded Payers Insurance Date Sequence Insurance Name Policy Number Policy Trejo Covered Member ID Trejo Member ID Guarantor Name 02/17/2020 1 [place] [place]MO) [id number] Moises Alysia [id number] Olivia Alysia 04/08/2025 1 [place] [id number] Olivia L Alysia [id number] Olivia Alysia Notes Date Note Type Note Provider Name and Address Organization Details Recorded Time 07/02/2022 text/html She is here because she has had 4 weeks of intermittent burning pain in her left axilla. Vee Huertas MD [address] [facility],[address], [place], [address], [place] [facility], [...] MD [address], [place], [phone], [facility], 04/07/2023 08:35:21 04/08/2024 text/html She is here for annual, doing well on vaginal and oral ERT, elects to continue. 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 Vee Huertas MD [address], [place], [phone], [facility], 04/08/2024 15:45:51 04/16/2024 text/html She is here for a complaint of vaginal odor and discharge, with pruritis on and off. Her recent pap had both clue cells and monilia. Vee Huertas MD [address], [place], [phone], [facility], 04/16/2024 10:33:19 04/11/2025 text/html She is [...] MD [address], [place], [address], [facility], 04/11/2025 08:21:22 OBGyn Episode No OBEpisode recorded.
== END 2025-06-21 10:13 | disposition home or self-care (01) ==
LOC: HO.HMCSH 09:28
PROVIDERS: PCP Internal Medicine; Visit Provider Internal Medicine
DX: Z00.00 Encounter for general adult medical examination without abnormal findings (principal)

== ENCOUNTER → 2025-06-21 09:27 | Outpatient (BNVA) | payer BC, SELFPAY | PROVIDERS: PCP Internal Medicine; Visit Provider Internal Medicine | DX: Z13.31 Encounter for screening for depression (principal) | CPT/HCPCS: 96127 ==